=== PATIENT | male | born 1970 | race Caucasian/White ===

== ENCOUNTER 2017-02-04 07:11 | Day surgery (SDC) | payer BC ==
[~2017-02-04 07:11] MED LIST: Lactated Ringers 1,000 ML IV SCH; ceFAZolin 1 GM in Premix Bag 1 BAG IV SCH
--- NOTE | 2017-02-04 07:25 | PCM.PREANE ---
Preanesthetic Assessment - Anesthesia/Transfusion/Family Hx Anesthesia History: Prior Anesthesia Without Reaction Family History of Anesthesia Reaction: No Transfusion History: No Prior Transfusion(s) - Review of Systems General: No Symptoms Pulmonary: No Symptoms Cardiovascular: No Symptoms Gastrointestinal: No symptoms Neurological: No Symptoms Other: Reports: None - Physical Assessment Height: 1.8 m Weight: 79.379 kg ASA Class: 2 Mental Status: Alert & Oriented x3 Airway Class: Mallampati = 1 Dentition: Reports: Partial ROM/Head Extension: Full Lungs: Clear to auscultation, Normal respiratory effort Cardiovascular: Regular Rate, Regular Rhythm - Allergies Allergies/Adverse Reactions: Allergies Allergy/AdvReac Type Severity Reaction Status Date / Time No Known Allergies Allergy Verified 02/02/17 16:34 - Blood Blood Available: No - Anesthesia Plan Pre-Op Medication Ordered: None - Acknowledgements Anesthesia Type Planned: General Anesthesia Pt an Appropriate Candidate for the Planned Anesthesia: Yes Alternatives and Risks of Anesthesia Discussed w Pt/Guardian: Yes Pt/Guardian Understands and Agrees with Anesthesia Plan: Yes PreAnesthesia Questionnaire HEENT History: Reports: Allergic rhinitis Other HEENT History: has upper removable partial denture Cardiovascular History: Reports: None Respiratory History: Reports: None Gastrointestinal History: Reports: None Genitourinary History: Reports: None, Other (see below) Other Genitourinary History: hx prostatitis 2009, no recurrant sx Musculoskeletal History: Reports: Fracture Other Musculoskeletal History: hx of fx ribs and left wrist....no hardware Neurological History: Reports: Concussion, Migraines Other Neuro History: remote hx of migraines Psychiatric History: Reports: None Endocrine/Metabolic History: Reports: None Hematologic History: Reports: None Immunologic History: Reports: None Oncologic (Cancer) History: Reports: None Dermatologic History: Reports: Psoriasis Other Dermatologic History: below knees, bilateral - Past Surgical History Head Surgeries/Procedures: Reports: None HEENT Surgical History: Reports: Naso-sinus surgery Cardiovascular Surgical History: Reports: None Respiratory Surgical History: Reports: None GI Surgical History: Reports: Hernia, inguinal Other GI Surgeries/Procedures: bilateral Male Surgical History: Reports: None Endocrine Surgical History: Reports: None Neurological Surgical History: Reports: None Musculoskeletal Surgical History: Reports: Other (see below) Other Musculoskeletal Surgeries/Procedures:: drainage of septic bursitis right knee Oncologic Surgical History: Reports: None - SUBSTANCE USE Smoking Status *Q: Current Every Day Smoker Tobacco Use Within Last Twelve Months: Cigarettes Recreational Drug Use History: Yes Recreational Drug Type: Reports: Marijuana/Hashish - HOME MEDS Home Medications: Home Meds Diclofenac Sodium [Voltaren] 1 tab PO BID 02/02/17 [History] - CURRENT (IN HOUSE) MEDS Current Meds: Current Medications Acetaminophen/Hydrocodone Bitart ([place] 325-5 Mg) 1 - 2 tab PO Q4H PRN PRN Reason: Pain Lactated Ringer's (Ringers, Lactated) 1,000 mls @ 100 mls/hr IV ASDIRECTED [facility] Last Admin: 02/04/17 07:22 Dose: 100 mls/hr Cefazolin Sodium/Dextrose 1 gm (/ Premix) 50 mls @ 100 mls/hr IV ONCALL [facility] Preanesthetic Assessment - ANESTHESIA/TRANSFUSION/FAMILY HX Family History of Anesthesia Reaction: No - PHYSICAL ASSESSMENT Height: 1.8 m Weight: 79.379 kg - ALLERGIES Allergies/Adverse Reactions: Allergies Allergy/AdvReac Type Severity Reaction Status Date / Time No Known Allergies Allergy Verified 02/02/17 16:34
[2017-02-04] MEDS ORDERED: Ondansetron 4 MG/2 ML SDV ONE (07:45)
[2017-02-04] MEDS ORDERED: Lidocaine 2% 5 ML SDV ONE (07:45)
[2017-02-04] MEDS ORDERED: fentaNYL 250 MCG/5 ML SDV ONE (07:46)
[2017-02-04] MEDS ORDERED: Propofol 200 MG/20 ML SDV ONE (07:46)
[2017-02-04] MEDS ORDERED: Midazolam 1 MG/ML 2 ML SDV ONE (07:46)
[2017-02-04] MEDS ORDERED: Acetaminophen/HYDROcodone 325-5 MG Tab PO PRN (08:00)
[2017-02-04] MEDS ORDERED: fentaNYL 100 MCG/2 ML SDV IVPUSH PRN (08:30)
[2017-02-04] MEDS ORDERED: HYDROmorphone 2 MG/ML Syringe ONE (10:06)
[2017-02-04] MEDS ORDERED: Ketorolac 30 MG/ML SDV ONE (10:09)
--- NOTE | 2017-02-04 10:40 | PCM.OPNOTE ---
- General Post-Op/Procedure Note Date of Surgery/Procedure: 02/04/17 Operative Procedure(s): right knee arthroscopy, partial medial meniscectomy, chrondroplasty of troch groove Post-Op Diagnosis: DJD of right knee, right medial meniscus tear Anesthesia Technique: General LMA Primary Surgeon: Deb Kang Carbide Grinder: Tomasa Hurtado EBChristiano in mLs: 5 Condition: Good Free Text/Narrative:: TTE= 17 minutes
--- NOTE | 2017-02-04 11:28 | PCM.POSTAN ---
POST ANESTHESIA ASSESSMENT - MENTAL STATUS Mental Status: alert, oriented - RESPIRATORY Respiratory Status: respiratory rate WNL, airway patent, O2 saturation stable - CARDIOVASCULAR CV Status: pulse rate WNL, blood pressure stable - GASTROINTESTINAL GI Status: no symptoms - PAIN Pain Score: 3 - POST OP HYDRATION Hydration Status: adequate & stable - OBSERVATIONS Free Text/Narrative:: no anesthesia problems
--- NOTE | 2017-02-04 12:02 | PCM48HPAN ---
Post Anesthesia Note - EVALUATION WITHIN 48HRS OF ANESTHETIC Vital Signs in Normal Range: Yes Patient Participated in Evaluation: Yes Respiratory Function Stable: Yes Airway Patent: Yes Cardiovascular Function Stable: Yes Hydration Status Stable: Yes Pain Control Satisfactory: Yes Nausea and Vomiting Control Satisfactory: Yes Mental Status Recovered: Yes
[2017-02-04 12:11] VITALS: BP 140/88
[2017-02-04] MEDS ORDERED: Lidocaine 1% 50 ML MDV ONE ×2 (12:13→12:15)
--- NOTE | 2017-02-04 16:57 | OR ---
SURGEON: Deb Kang MD DATE OF PROCEDURE: 02/04/2017 PREOPERATIVE DIAGNOSIS: Right knee medial meniscus tear. POSTOPERATIVE DIAGNOSES: 1. Right knee medial meniscus tear. 2. Right knee degenerative joint disease. PROCEDURE: Right knee arthroscopy with partial medial meniscectomy and chondroplasty of the trochlear groove. TEACHER EDUCATION DIRECTOR: Tram Lopez MD, PGY-2. ANESTHESIA: General. ESTIMATED BLOOD LOSS: 5 mL. TOURNIQUET TIME: 17 minutes. COMPLICATIONS: None. DVT PROPHYLAXIS: None indicated. IMPLANTS USED: None. BRIEF HISTORY: Carlos is a 46-year-old male, who has had complaint of progressive right knee pain. He had failed conservative treatment. An MRI did show a tear of the medial meniscus. Due to his lack of response to conservative treatment, I did recommend surgical intervention. Risks and goals of procedure were discussed with the patient and were documented preoperatively. He agreed to proceed. DESCRIPTION OF PROCEDURE: The patient was properly identified and brought to the operating room. He was transferred from the OR cart and placed on the operating table in supine position. General anesthesia was administered. After adequate anesthesia was obtained, a well-padded tourniquet was applied to the right lower extremity. The right lower extremity was then prepped in standard fashion using ChloraPrep solution. It was then sterilely draped. A time-out was performed to ensure correct site and procedure. Preoperative antibiotics were given. The surgical site had been marked preoperatively. An Esmarch was used to exsanguinate the right lower extremity and the tourniquet was inflated to 250 mmHg. A lateral portal arthrotomy was established. Blunt trocar and cannula were introduced into the suprapatellar pouch. Camera, inflow, and outflow were assembled. No significant synovitis was noted. The patellofemoral joint was visualized. The degenerative changes were noted. The patella appeared to track centrally. I then extended down the lateral and medial gutter. No loose bodies were identified. I then entered the medial compartment. A medial portal arthrotomy was established. Blunt probe was inserted. He did have a large tear of the posterior horn of the medial meniscus which appeared to flipped. The probe was used to tease the tear from its flipped position and it was brought into the joint. It was found to be quite unstable. Using a combination of biters and shaver, the meniscus was resected back to a stable remnant. The meniscus was again probed and found to be stable. The chondral surfaces were also inspected. He had diffuse grade 2 chondromalacia along the medial tibial plateau. The medial femoral condyle showed grade 1 chondromalacia only. I then entered the notch. Both the ACL and PCL were visualized and probed and found to be stable. I then entered the lateral compartment. Again grade 2 chondromalacia was noted diffusely along the lateral tibial plateau as well as over the lateral femoral condyle. The meniscus was probed and found to be stable. Minor degenerative fraying was noted along the central portion of the meniscus only. I then returned to the patellofemoral joint. The trochlear groove was inspected. 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 The shaver was used to perform a chondroplasty. It was again probed and found that the remainder of the cartilage was stable. The undersurface of the patella showed diffuse grade 2 changes. Instruments were then removed from the knee. The portal sites were closed with 3-0 nylon. Lidocaine 1% was injected along the portal tracts. Xeroform gauze was placed over the wound and a bulky dressing was applied. Tourniquet was then deflated. He was awakened from his anesthetic and transferred back to the operating room cart. He was brought to recovery room in stable condition. All needle and sponge counts were correct. SUSAN / ИРИНА /[id number]
== END 2017-02-04 12:37 | disposition home or self-care (01) ==
LOC: MW.SDS 07:11
PROVIDERS: ATTEND Orthopaedic Surgery
PROC: 0SBC4ZZ Excision of Right Knee Joint, Percutaneous Endoscopic Approach (ICD-10-PCS; principal; 2017-02-04)
DX: S83.241A Other tear of medial meniscus, current injury, right knee, initial encounter (principal); M94.261 Chondromalacia, right knee; M17.11 Unilateral primary osteoarthritis, right knee; F17.210 Nicotine dependence, cigarettes, uncomplicated; Z79.1 Long term (current) use of non-steroidal anti-inflammatories (NSAID); Z98.890 Other specified postprocedural states
CPT/HCPCS: 29881; A9270; J0690; J1170; J1885; J2250; J2405; J3010; J7120; 01400; 88304; J2704

== ENCOUNTER → 2017-03-25 | Outpatient (CLI) | payer BC ==
[2017-03-25 12:04] LABS: CHLORIDE,CL 104 mmol/L (98-110); SODIUM,NA 137 mmol/L (136-146)
== END ==
LOC: MW.CHFP 10:55
PROVIDERS: ATTEND Physician Assistant
DX: I10 Essential (primary) hypertension (principal)
CPT/HCPCS: 36415; 80053; 82553; 84484; 93005

== ENCOUNTER → 2017-03-28 | Outpatient (CLI) | payer BC ==
[2017-03-28 09:18] LABS: CHLORIDE,CL 110 mmol/L (98-110); SODIUM,NA 142 mmol/L (136-146)
== END | disposition home or self-care (01) ==
LOC: MW.CHFP 08:04
PROVIDERS: ATTEND Physician Assistant
DX: I10 Essential (primary) hypertension (principal)
CPT/HCPCS: 36415; 80048; 80061

== ENCOUNTER → 2017-04-06 | Outpatient (CLI) | payer BC ==
--- NOTE | 2017-04-08 16:52 | ECHO ---
EXAM DATE: 04/06/17 PATIENT'S AGE: 46 The echocardiogram report can be seen in this patient's EMR (Electronic Medical Record) in the Reports section. IRENE
== END ==
LOC: MW.US 13:50
PROVIDERS: ATTEND Physician Assistant
DX: I10 Essential (primary) hypertension (principal); I51.7 Cardiomegaly
CPT/HCPCS: 93306

== ENCOUNTER 2017-04-26 08:13 | Emergency (ER) | payer BC ==
--- NOTE | 2017-04-26 08:25 | EDM.PDOC ---
ED HPI GENERAL MEDICAL PROBLEM - General Chief Complaint: Gastrointestinal Problem Stated Complaint: NEED TO SEE A DOCTOR Time Seen by Provider: 04/26/17 08:22 Source of Information: Reports: Patient History Limitations: Reports: No Limitations - History of Present Illness INITIAL COMMENTS - FREE TEXT/NARRATIVE: History of present illness: [] Patient is a chronic alcoholic who decided to stop drinking 3 days ago and is now complaining of severe weakness, vomiting, diarrhea, shaking and abdominal pain. He denies having blood in his emesis or stools. Patient denies any history of seizures. Review of systems: As per history of present illness and below otherwise all systems reviewed and negative. Past medical history: As per history of present illness and as reviewed below otherwise noncontributory. Surgical history: As per history of present illness and as reviewed below otherwise noncontributory. Social history: No reported history of drug or alcohol abuse. Family history: As per history of present illness and as reviewed below otherwise noncontributory. Physical exam: General: Well developed, well nourished mild tremors HEENT: Atraumatic, normocephalic, pupils reactive, negative for conjunctival pallor or scleral icterus, mucous membranes moist, throat clear, neck supple, nontender, trachea midline. Lungs: Clear to auscultation, breath sounds equal bilaterally, chest nontender. Heart: S1S2, regular, negative for clicks, rubs, or JVD. Abdomen: Soft, nondistended, nontender. Negative for masses or hepatosplenomegaly. Negative for costovertebral tenderness. Pelvis: Stable nontender. Genitourinary: Deferred. Rectal: Deferred. Extremities: Atraumatic, negative for cords or calf pain. Neurovascular unremarkable. Neuro: Awake, alert, oriented. Cranial nerves II through XII unremarkable. Cerebellum unremarkable. Motor and sensory unremarkable throughout. Exam nonfocal. Diagnostics: [] Lab work checked Therapeutics: [] Patient given a banana bag and Ativan. Impression: [] Alcohol withdrawal Plan: [] Followup PMD Librium instructed return if symptoms worsen or change Definitive disposition and diagnosis as appropriate pending reevaluation and review of above. - Related Data Allergies Allergy/AdvReac Type Severity Reaction Status Date / Time No Known Allergies Allergy Verified 02/02/17 16:34 Home Meds: Home Meds Lisinopril [Prinivil] 10 mg PO DAILY 04/26/17 [History] atorvaSTATin [Lipitor] 20 mg PO BEDTIME 04/26/17 [History] chlordiazePOXIDE [Librium] 25 mg PO TID #15 cap 04/26/17 [Rx] Past Medical History HEENT History: Reports: Allergic Rhinitis Other HEENT History: has upper removable partial denture Cardiovascular History: Reports: None Respiratory History: Reports: None Gastrointestinal History: Reports: None Genitourinary History: Reports: None, Other (See Below) Other Genitourinary History: hx prostatitis 2008, no recurrant sx Musculoskeletal History: Reports: Fracture Other Musculoskeletal History: hx of fx ribs and left wrist....no hardware Neurological History: Reports: Concussion, Migraines Other Neuro History: remote hx of migraines Psychiatric History: Reports: None Endocrine/Metabolic History: Reports: None Hematologic History: Reports: None Immunologic History: Reports: None Oncologic (Cancer) History: Reports: None Dermatologic History: Reports: Psoriasis Other Dermatologic History: below knees, bilateral - Past Surgical History HEENT Surgical History: Reports: Naso-Sinus Surgery GI Surgical History: Reports: Hernia, Inguinal Musculoskeletal Surgical History: Reports: Other (See Below) Social & Family History - Tobacco Use Smoking Status *Q: Current Every Day Smoker Years of Tobacco use: 8 Packs/Tins Daily: 0.5 - Recreational Drug Use Recreational Drug Use: Yes Drug Use in Last 12 Months: Yes Recreational Drug Type: Reports: Marijuana/Hashish Recreational Drug Use Frequency: Rarely ED ROS GENERAL - Review of Systems Review Of Systems: See Below (See history of present illness) ED EXAM, GI/ABD - Physical Exam Exam: See Below (See history of present illness) Course - Vital Signs Last Recorded V/S: Last Vital Signs Temp 36.6 C 04/26/17 10:59 Pulse 94 04/26/17 10:59 Resp 19 04/26/17 10:59 BP 163/93 H 04/26/17 10:59 Pulse Ox 96 04/26/17 10:59 - Orders/Labs/Meds Orders: Active Orders 24 hr Category Date Time Status EKG Documentation Completion [RC] STAT Care 04/26/17 08:30 Active Saline Lock Insert [OM.PC] Stat Oth 04/26/17 08:30 Ordered Labs: Laboratory Tests 04/26/17 04/26/17 04/26/17 Range/Units 08:44 08:44 08:44 WBC 12.50 H (4.0-11.0) K/uL RBC 5.53 (4.50-5.90) M/uL Hgb 17.7 H (13.0-17.0) g/dL Hct 47.8 (38.0-50.0) % MCV 86.4 (80.0-98.0) fL MCH 32.0 (27.0-32.0) pg MCHC 37.0 (31.0-37.0) g/dL RDW Std Deviation 39.5 (28.0-62.0) fl RDW Coeff of Cathi 13 (11.0-15.0) % Plt Count 180 (150-400) K/uL MPV 10.40 (7.40-12.00) fL Neut % (Auto) 62.0 (48.0-80.0) % Lymph % (Auto) 25.4 (16.0-40.0) % [place] % (Auto) 11.8 (0.0-15.0) % Eos % (Auto) 0.4 (0.0-7.0) % Baso % (Auto) 0.4 (0.0-1.5) % Neut # (Auto) 7.7 H (1.4-5.7) K/uL Lymph # (Auto) 3.2 H (0.6-2.4) K/uL [place] # (Auto) 1.5 H (0.0-0.8) K/uL Eos # (Auto) 0.1 (0.0-0.7) K/uL Baso # (Auto) 0.1 (0.0-0.1) K/uL Nucleated RBC % 0.0 /100WBC Nucleated RBCs # 0 K/uL Sodium 135 L (136-146) mmol/L Potassium 3.6 (3.5-5.1) mmol/L Chloride 99 (98-110) mmol/L Carbon Dioxide 19 L (21-31) mmol/L BUN 12 (6.0-23.0) mg/dL Creatinine 0.9 (0.6-1.5) mg/dL Est Cr Clr Drug Dosing 106.91 mL/min Estimated GFR (MDRD) > 60.0 ml/min Glucose 114 H (60-110) mg/dL Calcium 8.7 L (8.8-10.8) mg/dL Total Bilirubin 1.8 H (0.1-1.5) mg/dL AST 32 (5-40) IU/L ALT 29 (8-54) IU/L Alkaline Phosphatase 120 (40-150) Ammonia 50 (14-68) UG/DL Total Protein 7.4 (6.0-8.0) g/dL Albumin 4.7 (3.5-5.0) g/dL Globulin 2.7 (2.0-3.5) g/dL Albumin/Globulin Ratio 1.7 (1.3-2.8) Lipase 91 H (7-80) U/L Urine Opiates Screen (NEGATIVE) Ur Oxycodone Screen (NEGATIVE) Urine Methadone Screen (NEGATIVE) Ur Barbiturates Screen (NEGATIVE) Ur Phencyclidine Scrn (NEGATIVE) Ur Amphetamine Screen (NEGATIVE) U Methamphetamines Scrn (NEGATIVE) U Benzodiazepines Scrn (NEGATIVE) U Cocaine Metab Screen (NEGATIVE) U Marijuana (THC) Screen (NEGATIVE) Ethyl Alcohol < 10.0 mg/dL 04/26/17 Range/Units 10:27 WBC (4.0-11.0) K/uL RBC (4.50-5.90) M/uL Hgb (13.0-17.0) g/dL Hct (38.0-50.0) % MCV (80.0-98.0) fL MCH (27.0-32.0) pg MCHC (31.0-37.0) g/dL RDW Std Deviation (28.0-62.0) fl RDW Coeff of Cathi (11.0-15.0) % Plt Count (150-400) K/uL MPV (7.40-12.00) fL Neut % (Auto) (48.0-80.0) % Lymph % (Auto) (16.0-40.0) % [place] % (Auto) (0.0-15.0) % Eos % (Auto) (0.0-7.0) % Baso % (Auto) (0.0-1.5) % Neut # (Auto) (1.4-5.7) K/uL Lymph # (Auto) (0.6-2.4) K/uL [place] # (Auto) (0.0-0.8) K/uL Eos # (Auto) (0.0-0.7) K/uL Baso # (Auto) (0.0-0.1) K/uL Nucleated RBC % /100WBC Nucleated RBCs # K/uL Sodium (136-146) mmol/L Potassium (3.5-5.1) mmol/L Chloride (98-110) mmol/L Carbon Dioxide (21-31) mmol/L BUN (6.0-23.0) mg/dL Creatinine (0.6-1.5) mg/dL Est Cr Clr Drug Dosing mL/min Estimated GFR (MDRD) ml/min Glucose (60-110) mg/dL Calcium (8.8-10.8) mg/dL Total Bilirubin (0.1-1.5) mg/dL AST (5-40) IU/L ALT (8-54) IU/L Alkaline Phosphatase (40-150) Ammonia (14-68) UG/DL Total Protein (6.0-8.0) g/dL Albumin (3.5-5.0) g/dL Globulin (2.0-3.5) g/dL Albumin/Globulin Ratio (1.3-2.8) Lipase (7-80) U/L Urine Opiates Screen NEGATIVE (NEGATIVE) Ur Oxycodone Screen NEGATIVE (NEGATIVE) Urine Methadone Screen NEGATIVE (NEGATIVE) Ur Barbiturates Screen NEGATIVE (NEGATIVE) Ur Phencyclidine Scrn NEGATIVE (NEGATIVE) Ur Amphetamine Screen NEGATIVE (NEGATIVE) U Methamphetamines Scrn NEGATIVE (NEGATIVE) U Benzodiazepines Scrn NEGATIVE (NEGATIVE) U Cocaine Metab Screen NEGATIVE (NEGATIVE) U Marijuana (THC) Screen POSITIVE (NEGATIVE) Ethyl Alcohol mg/dL Meds: Medications Discontinued Medications Generic Name Dose Route Start Last Admin Trade Name Freq PRN Reason Stop Dose Admin Multivitamins/Minerals 10 ml/ 1,015.2 mls @ 999 mls/hr 04/26/17 09:15 09:24 Thiamine HCl 100 mg/ Folic IV 04/26/17 10:15 999 mls/hr Acid 1 mg/ Magnesium Sulfate 2 ONETIME ONE Administration gm/ Sodium Chloride Lorazepam 1 mg 04/26/17 08:34 04/26/17 08:50 Ativan IVPUSH 04/26/17 08:35 1 mg ONETIME ONE Administration Departure - Departure Time of Disposition: 11:06 Disposition: Home, Self-Care 01 Condition: good Clinical Impression: Uncontrolled hypertension Alcohol withdrawal Qualifiers: Complication of substance-induced condition: uncomplicated Qualified Code(s): F10.230 - Alcohol dependence with withdrawal, uncomplicated - Discharge Information Prescriptions: chlordiazePOXIDE [Librium] 25 mg PO TID #15 cap Referrals: Denys Madden [Primary Care Provider] - Forms: ED Department Discharge Additional Instructions: The following information is given to patients seen in the emergency department who are being discharged to home. This information is to outline your options for follow-up care. We provide all patients seen in our emergency department with a follow-up referral. The need for follow-up, as well as the timing and circumstances, are variable depending upon the specifics of your emergency department visit. If you don't have a primary care physician on staff, we will provide you with a referral. We always advise you to contact your personal physician following an emergency department visit to inform them of the circumstance of the visit and for follow-up with them and/or the need for any referrals to a consulting specialist. The emergency department will also refer you to a specialist when appropriate. This referral assures that you have the opportunity for follow-up care with a specialist. All of these measure are taken in an effort to provide you with optimal care, which includes your follow-up. Under all circumstances we always encourage you to contact your private physician who remains a resource for coordinating your care. When calling for follow-up care, please make the office aware that this follow-up is from your recent emergency room visit. If for any reason you are refused follow-up, please contact the [facility] Emergency Department at and asked to speak to the emergency department charge nurse. Bon as directed, follow up a primary care physician for blood pressure control. [facility] [address] [place] [id number] - My Orders Last 24 Hours: My Active Orders 04/26/17 08:30 EKG Documentation Completion [RC] STAT Saline Lock Insert [OM.PC] Stat - Assessment/Plan Last 24 Hours: My Active Orders 04/26/17 08:30 EKG Documentation Completion [RC] STAT Saline Lock Insert [OM.PC] Stat
[2017-04-26] MEDS ORDERED: MVI, Adult with Vitamin K 10 ML, Thiamine 100 MG, Folic Acid 1 MG, Magnesium Sulfate 2 ... IV ONE ×10 (08:32→09:15)
[2017-04-26] MEDS ORDERED: LORazepam 2 MG/ML MDV IVPUSH ONE (08:34)
[2017-04-26 09:21] LABS: CHLORIDE,CL 99 mmol/L (98-110); SODIUM,NA 135 mmol/L (136-146)
[2017-04-26 14:30] VITALS: BP 161/100
== END 2017-04-26 11:30 | disposition home or self-care (01) ==
LOC: MW.ED 08:13
DX: F10.230 Alcohol dependence with withdrawal, uncomplicated (principal); I10 Essential (primary) hypertension; G43.909 Migraine, unspecified, not intractable, without status migrainosus; L40.9 Psoriasis, unspecified; F17.210 Nicotine dependence, cigarettes, uncomplicated; Z79.899 Other long term (current) drug therapy; Y90.0 Blood alcohol level of less than 20 mg/100 ml
CPT/HCPCS: 36415; 80053; 80305; 82140; 83690; 85025; 93005; 96365; 96375; 99285; G0480; J2060; J3411; J3475; J7040; 99284

== ENCOUNTER 2021-08-30 16:37 | Emergency (ER) | payer BC ==
--- NOTE | 2021-08-30 17:00 | PCM.EKG ---
#1 Interpretation EKG Interpretation Comments: EKG performed 08/30/2021 at 4:47 PM. Sinus rhythm heart rate 81 MA 171 QT 422 axis 53. QRS normalized T slightly elevated T waves peaked. Compared to 04/26/2017 no acute changes except T wave slightly larger. Impression no acute injury
[2021-08-30] MEDS ORDERED: Sodium Chloride 0.9% 1,000 ML IV ONE ×2 (17:10→18:18)
[2021-08-30] MEDS ORDERED: Sodium Chloride 0.9% 2.5 ML Syringe FLUSH PRN (17:10)
[2021-08-30] MEDS ORDERED: Sodium Chloride 0.9% 10 ML Syringe FLUSH PRN (17:10)
[2021-08-30] MEDS ORDERED: Ondansetron 4 MG/2 ML SDV IVPUSH ONE (17:10)
[2021-08-30] MEDS ORDERED: Naloxone 0.4 MG/ML SDV IVPUSH ONE ×2 (17:14→21:46)
--- NOTE | 2021-08-30 17:19 | EDM.PDOC ---
ED HPI GENERAL MEDICAL PROBLEM - General Chief Complaint: General Stated Complaint: WEAKNESS, DIZZY Time Seen by Provider: 08/30/21 16:54 Source of Information: Reports: Patient, Family () History Limitations: Reports: No Limitations - History of Present Illness INITIAL COMMENTS - FREE TEXT/NARRATIVE: HISTORY AND PHYSICAL: History of present illness: The patient is a 51-year-old male with a history of neck pain and substance abuse who presents to the emergency room for complaints of losing balance, increased motor twitching of his upper extremities, decreased eating and drinking, for over a week. The patient states that on Tuesday, Tuesday, Tuesday he had a bad migraine. Patient also states that on the patient was at [employer] and blacked out. The patient did not seek medical treatment at that time. The patient states that he is taking hydromorphone 1 mg every 3 hours for a chronic neck pain issue. The patient states that he took 2 doses this morning. The states that the patient is not supposed to be taking this medication as it is highly addictive. The patient states that him and his doctor, Dr. Stacy, decided that he should take the hydromorphone because he is unable to work without it. The patient states that he has not sought treatment for this increase twitching, loss of balance and blacking out. Review of systems: As per history of present illness and below otherwise all systems reviewed and negative. Past medical history: As per history of present illness and as reviewed below otherwise noncontributory. Surgical history: As per history of present illness and as reviewed below otherwise noncontributory. Social history: See social history for further information Family history: As per history of present illness and as reviewed below otherwise noncontributory. Physical exam: General: Well developed and well nourished. Alert and orientated x 3. Nontoxic in appearance and in no acute distress. Nursing notes were reviewed. HEENT: Atraumatic, normocephalic, pupils equal and reactive bilaterally, negative for conjunctival pallor or scleral icterus, mucous membranes Dry, TMs normal bilaterally, throat clear, neck supple, nontender, trachea midline. No drooling or trismus noted. No meningeal signs. No hot potato voice noted. Lungs: Clear to auscultation bilaterally. No wheezes, rales, or rhonchi. Chest nontender. Normal work of breathing, no accessory muscles used. Heart: S1S2, regular rate and rhythm without overt murmur, gallops, or rubs. No JVD. No peripheral edema Abdomen: Soft, nondistended, nontender. Normoactive bowel sounds. Negative for masses or costovertebral tenderness. Skin: Intact, warm, dry. No lesions or rashes noted. Hematologic: No petechiae or purpra. Mucosa appropriate color and normal nail bed color and decrease capillary refill. Extremities: Atraumatic, moves all extremities per self without difficulty. Noted upper extremity twitching. Neurovascular unremarkable. Neuro: Awake, alert, oriented. Cranial nerves II through XII unremarkable. Cerebellum unremarkable. Motor and sensory unremarkable throughout. Exam nonfocal. Psychiatric: Mood and affect are appropriate. Normal thought process. Answering questions appropriately. Notes: *This patient was seen and evaluated during the 2019 SARS-CoV-2 novel coronavirus pandemic period. Community viral transmission is ongoing at time of this encounter and the emergency department is operating under pandemic response procedures. Dr. Ch consulting on case. The patient is a 51-year-old male who presents to the emergency room for complaints of losing his balance, migraines on Tuesday, Tuesday, Tuesday, increased upper extremity twitching and decreased appetite for over a week. As a was telling me the patient's medications and we were working on getting an IV and some IV fluids going on the patient as his oral mucosa and tongue were very dry and his blood pressure was in the 80s systolic. The patient told me that he takes hydromorphone 1 mg every 3 hours. He states that he had 2 doses today. The was concerned surprised as he is not so to be taking this. I asked the patient where he was getting his medication and he states from Dr. Stacy. Patient stated that he is just unable to work without the medication. 17:50 The patient's blood pressure remains low 80s systolic. Patient is alert and answering questions appropriately. Instructions that if the patient's blood pressure drops below 70 that we need to give the Narcan. The nurses have it at the bedside. 18:06 the patient's blood pressure dropped to 67 systolic and the Narcan was pushed. The patient became more alert. The blood pressure is now 93 systolic. The patient is starting to feel woozy. 18:26 the patient's potassium is 5.5 and with his EKG changes I have ordered bicarb 1 amp and calcium gluconate 1000 mg after consulting with Dr. Ch. 19:04 Dr. Ricketts consulting on case. The EKG with improvement after bicarb and calcium gluconate. 20:03 looking back at the patient's records in January of this year his creatinine was 1 and now it is 5.5. Upon asking the patient that he had any difficulty since January the patient stated no and is unaware of any elevation in his creatinine. The patient's CBC is significant for hemoglobin of 11.3. The patient's last hemoglobin I have on file is 06/30/2020 which was 16.6. The CMP is significant for a sodium of 135 and potassium of 5.5. The patient's BUN is 93, creatinine 5.4 calcium 8.4 magnesium 3.0. The patient is troponin is less than 0.050. The patient's free T4 is 0.58, free T3 is 2.37 and TSH is 3.67. The patient's urine is negative for any infection. The patient's drug screen is positive for opioids, amphetamine, and benzodiazepine, the patient reports that he takes lisinopril for blood pressure, Adderall for ADHD, metoprolol for some kind of heart rhythm, gabapentin for pain, and hydromorphone for pain. 20:[address] Bartlett regarding the patient and he feels that the patient needs a nephrology consult and to high acuity for our facility. I will informed the patient of the need to be transferred. 20:[address] IMPRESSION: No CT evidence of an acute intracranial abnormality. 21:48 , emergency department physician, has accepted the patient for ICU admission as the patient's blood pressure has continuously dropped to 82/42, 81/44 and 85/40. Dr. Cooney advised to give patient another 4 of Narcan as this appeared to help his blood pressure previously. I have ordered the Narcan 4 mg IV push. 22:05 the patient's pressure has stabilized at 114/66 after the second 4 mg of Narcan. We have arranged for transfer. The patient will be transported around 12:30 AM. As our ground crew is out of town. 22:14 The patient's repeat CMP the sodium is corrected at 141. The potassium is low at 5.2. The chloride is 109. Creatinine is 4.0 calcium 7.1. 22:15 I have informed the patient's and the patient of the pending transfer. They are both agreeable with this. The patient is COVID-19 negative. 22:[address] Ricketts. Diagnostics: Gilliam, Acetaminophen, CBC, CMP, virus swab, blood cultures x2, d rug screen, lactic acid, magnesium, T3, T4, troponin, TSH, urinalysis, repeat CM, head CT, CXR Therapeutics: IV fluids x 4, calcium gluconate, sodium bicarb, Narcan x2 Impression: Hypotension, renal failure, opioid overdose Definitive disposition and diagnosis as appropriate pending reevaluation and review of above. - Related Data Allergies Allergy/AdvReac Type Severity Reaction Status Date / Time No Known Allergies Allergy Unverified 09/01/21 19:02 Home Meds: Home Meds Lisinopril [Prinivil] 10 mg PO DAILY 04/26/17 [History] atorvaSTATin [Lipitor] 20 mg PO BEDTIME 04/26/17 [History] chlordiazePOXIDE [Librium] 25 mg PO TID #15 cap 04/26/17 [Rx] Past Medical History HEENT History: Reports: Allergic Rhinitis Other HEENT History: has upper removable partial denture Cardiovascular History: Reports: None Respiratory History: Reports: None Gastrointestinal History: Reports: None Genitourinary History: Reports: Other (See Below) Other Genitourinary History: hx prostatitis 2008, no recurrant sx Musculoskeletal History: Reports: Fracture Other Musculoskeletal History: hx of fx ribs and left wrist....no hardware Neurological History: Reports: Concussion, Migraines Other Neuro History: remote hx of migraines Psychiatric History: Reports: None Other Psychiatric History: ETOH Endocrine/Metabolic History: Reports: None Hematologic History: Reports: None Immunologic History: Reports: None Oncologic (Cancer) History: Reports: None Dermatologic History: Reports: Psoriasis Other Dermatologic History: below knees, bilateral - Past Surgical History Head Surgeries/Procedures: Reports: None HEENT Surgical History: Reports: Naso-Sinus Surgery GI Surgical History: Reports: Hernia, Inguinal Musculoskeletal Surgical History: Reports: Other (See Below) Social & Family History - Caffeine Use Caffeine Use: Reports: None ED ROS GENERAL - Review of Systems Review Of Systems: Comprehensive ROS is negative, except as noted in HPI. ED EXAM, GENERAL - Physical Exam Exam: See Below (See dictation) Course - Vital Signs Last Recorded V/S: Last Vital Signs Temp 97.7 F 08/30/21 17:18 Pulse 84 08/31/21 01:56 Resp 18 08/31/21 01:56 BP 103/57 L 08/31/21 01:56 Pulse Ox 98 08/31/21 01:56 - Orders/Labs/Meds Labs: Laboratory Tests 08/30/21 08/30/21 08/30/21 Range/Units 16:42 17:13 17:13 WBC (4.0-11.0) K/uL RBC (4.50-5.90) M/uL Hgb (13.0-17.0) g/dL Hct (38.0-50.0) % MCV (80.0-98.0) fL MCH (27.0-32.0) pg MCHC (31.0-37.0) g/dL RDW Std Deviation (28.0-62.0) fl RDW Coeff of Cathi (11.0-15.0) % Plt Count (150-400) K/uL MPV (7.40-12.00) fL Neut % (Auto) (48.0-80.0) % Lymph % (Auto) (16.0-40.0) % Gooding % (Auto) (0.0-15.0) % Eos % (Auto) (0.0-7.0) % Baso % (Auto) (0.0-1.5) % Neut # (Auto) (1.4-5.7) K/uL Lymph # (Auto) (0.6-2.4) K/uL Gooding # (Auto) (0.0-0.8) K/uL Eos # (Auto) (0.0-0.7) K/uL Baso # (Auto) (0.0-0.1) K/uL Nucleated RBC % /100WBC Nucleated RBCs # K/uL Sodium 135 L (136-148) mmol/L Potassium 5.5 H (3.5-5.1) mmol/L Chloride 100 (98-107) mmol/L Carbon Dioxide 21.6 (21.0-32.0) mmol/L BUN 93 H (7.0-18.0) mg/dL Creatinine 5.4 H (0.8-1.3) mg/dL Est Cr Clr Drug Dosing TNP Estimated GFR (MDRD) 11.2 ml/min Glucose 102 (74-106) mg/dL POC Glucose 104 H (70-99) mg/dL Lactic Acid 0.5 (0.4-2.0) mmol/L Calcium 8.4 L (8.5-10.1) mg/dL Magnesium 3.0 H (1.8-2.4) mg/dL Total Bilirubin 0.3 (0.2-1.0) mg/dL AST 23 (15-37) IU/L ALT 21 (14-63) IU/L Alkaline Phosphatase 105 (46-116) U/L Troponin I (0.000-0.056) ng/mL Total Protein 7.2 (6.4-8.2) g/dL Albumin 4.0 (3.4-5.0) g/dL Globulin 3.2 (2.6-4.0) g/dL Albumin/Globulin Ratio 1.3 (0.9-1.6) Free T4 (0.76-1.46) ng/dL Free T3 (2.18-3.98) pg/mL TSH, Ultra Sensitive (0.36-3.74) uIU/mL Urine Color Urine Appearance Urine pH (5.0-8.0) Ur Specific Letcher (1.001-1.035) Urine Protein (NEGATIVE) mg/dL Urine Glucose (UA) (NEGATIVE) mg/dL Urine Ketones (NEGATIVE) mg/dL Urine Occult Blood (NEGATIVE) Urine Nitrite (NEGATIVE) Urine Bilirubin (NEGATIVE) Urine Urobilinogen (<2.0) EU/dL Ur Leukocyte Esterase (NEGATIVE) Urine Opiates Screen (NEGATIVE) Ur Oxycodone Screen (NEGATIVE) Urine Methadone Screen (NEGATIVE) Acetaminophen ug/mL Ur Barbiturates Screen (NEGATIVE) Ur Phencyclidine Scrn (NEGATIVE) Ur Amphetamine Screen (NEGATIVE) U Methamphetamines Scrn (NEGATIVE) U Benzodiazepines Scrn (NEGATIVE) U Cocaine Metab Screen (NEGATIVE) U Marijuana (THC) Screen (NEGATIVE) SARS-CoV-2 RNA (MERA) (NEGATIVE) 08/30/21 08/30/21 08/30/21 Range/Units 17:13 17:45 18:45 WBC 10.71 (4.0-11.0) K/uL RBC 3.67 L (4.50-5.90) M/uL Hgb 11.3 L (13.0-17.0) g/dL Hct 34.2 L (38.0-50.0) % MCV 93.2 (80.0-98.0) fL MCH 30.8 (27.0-32.0) pg MCHC 33.0 (31.0-37.0) g/dL RDW Std Deviation 46.8 (28.0-62.0) fl RDW Coeff of Cathi 14 (11.0-15.0) % Plt Count 160 (150-400) K/uL MPV 11.40 (7.40-12.00) fL Neut % (Auto) 61.7 (48.0-80.0) % Lymph % (Auto) 24.1 (16.0-40.0) % Gooding % (Auto) 9.4 (0.0-15.0) % Eos % (Auto) 4.4 (0.0-7.0) % Baso % (Auto) 0.4 (0.0-1.5) % Neut # (Auto) 6.6 H (1.4-5.7) K/uL Lymph # (Auto) 2.6 H (0.6-2.4) K/uL Gooding # (Auto) 1.0 H (0.0-0.8) K/uL Eos # (Auto) 0.5 (0.0-0.7) K/uL Baso # (Auto) 0.0 (0.0-0.1) K/uL Nucleated RBC % 0.0 /100WBC Nucleated RBCs # 0 K/uL Sodium (136-148) mmol/L Potassium (3.5-5.1) mmol/L Chloride (98-107) mmol/L Carbon Dioxide (21.0-32.0) mmol/L BUN (7.0-18.0) mg/dL Creatinine (0.8-1.3) mg/dL Est Cr Clr Drug Dosing Estimated GFR (MDRD) ml/min Glucose (74-106) mg/dL POC Glucose (70-99) mg/dL Lactic Acid (0.4-2.0) mmol/L Calcium (8.5-10.1) mg/dL Magnesium (1.8-2.4) mg/dL Total Bilirubin (0.2-1.0) mg/dL AST (15-37) IU/L ALT (14-63) IU/L Alkaline Phosphatase (46-116) U/L Troponin I < 0.050 (0.000-0.056) ng/mL Total Protein (6.4-8.2) g/dL Albumin (3.4-5.0) g/dL Globulin (2.6-4.0) g/dL Albumin/Globulin Ratio (0.9-1.6) Free T4 0.58 L (0.76-1.46) ng/dL Free T3 2.37 (2.18-3.98) pg/mL TSH, Ultra Sensitive 3.67 (0.36-3.74) uIU/mL Urine Color YELLOW Urine Appearance CLEAR Urine pH 5.5 (5.0-8.0) Ur Specific Letcher 1.020 (1.001-1.035) Urine Protein NEGATIVE (NEGATIVE) mg/dL Urine Glucose (UA) NEGATIVE (NEGATIVE) mg/dL Urine Ketones NEGATIVE (NEGATIVE) mg/dL Urine Occult Blood NEGATIVE (NEGATIVE) Urine Nitrite NEGATIVE (NEGATIVE) Urine Bilirubin NEGATIVE (NEGATIVE) Urine Urobilinogen 0.2 (<2.0) EU/dL Ur Leukocyte Esterase NEGATIVE (NEGATIVE) Urine Opiates Screen (NEGATIVE) Ur Oxycodone Screen (NEGATIVE) Urine Methadone Screen (NEGATIVE) Acetaminophen <2.0 ug/mL Ur Barbiturates Screen (NEGATIVE) Ur Phencyclidine Scrn (NEGATIVE) Ur Amphetamine Screen (NEGATIVE) U Methamphetamines Scrn (NEGATIVE) U Benzodiazepines Scrn (NEGATIVE) U Cocaine Metab Screen (NEGATIVE) U Marijuana (THC) Screen (NEGATIVE) SARS-CoV-2 RNA (MERA) (NEGATIVE) 08/30/21 08/30/21 08/30/21 Range/Units 18:45 20:50 21:35 WBC (4.0-11.0) K/uL RBC (4.50-5.90) M/uL Hgb (13.0-17.0) g/dL Hct (38.0-50.0) % MCV (80.0-98.0) fL MCH (27.0-32.0) pg MCHC (31.0-37.0) g/dL RDW Std Deviation (28.0-62.0) fl RDW Coeff of Cathi (11.0-15.0) % Plt Count (150-400) K/uL MPV (7.40-12.00) fL Neut % (Auto) (48.0-80.0) % Lymph % (Auto) (16.0-40.0) % Gooding % (Auto) (0.0-15.0) % Eos % (Auto) (0.0-7.0) % Baso % (Auto) (0.0-1.5) % Neut # (Auto) (1.4-5.7) K/uL Lymph # (Auto) (0.6-2.4) K/uL Gooding # (Auto) (0.0-0.8) K/uL Eos # (Auto) (0.0-0.7) K/uL Baso # (Auto) (0.0-0.1) K/uL Nucleated RBC % /100WBC Nucleated RBCs # K/uL Sodium 141 (136-148) mmol/L Potassium 5.2 H (3.5-5.1) mmol/L Chloride 109 H (98-107) mmol/L Carbon Dioxide 22.1 (21.0-32.0) mmol/L BUN 78 H (7.0-18.0) mg/dL Creatinine 4.0 H (0.8-1.3) mg/dL Est Cr Clr Drug Dosing TNP Estimated GFR (MDRD) 15.8 ml/min Glucose 98 (74-106) mg/dL POC Glucose (70-99) mg/dL Lactic Acid (0.4-2.0) mmol/L Calcium 7.1 L (8.5-10.1) mg/dL Magnesium (1.8-2.4) mg/dL Total Bilirubin 0.2 (0.2-1.0) mg/dL AST 13 L (15-37) IU/L ALT 16 (14-63) IU/L Alkaline Phosphatase 85 (46-116) U/L Troponin I (0.000-0.056) ng/mL Total Protein 5.5 L (6.4-8.2) g/dL Albumin 3.0 L (3.4-5.0) g/dL Globulin 2.5 L (2.6-4.0) g/dL Albumin/Globulin Ratio 1.2 (0.9-1.6) Free T4 (0.76-1.46) ng/dL Free T3 (2.18-3.98) pg/mL TSH, Ultra Sensitive (0.36-3.74) uIU/mL Urine Color Urine Appearance Urine pH (5.0-8.0) Ur Specific Letcher (1.001-1.035) Urine Protein (NEGATIVE) mg/dL Urine Glucose (UA) (NEGATIVE) mg/dL Urine Ketones (NEGATIVE) mg/dL Urine Occult Blood (NEGATIVE) Urine Nitrite (NEGATIVE) Urine Bilirubin (NEGATIVE) Urine Urobilinogen (<2.0) EU/dL Ur Leukocyte Esterase (NEGATIVE) Urine Opiates Screen POSITIVE (NEGATIVE) Ur Oxycodone Screen NEGATIVE (NEGATIVE) Urine Methadone Screen NEGATIVE (NEGATIVE) Acetaminophen ug/mL Ur Barbiturates Screen NEGATIVE (NEGATIVE) Ur Phencyclidine Scrn NEGATIVE (NEGATIVE) Ur Amphetamine Screen POSITIVE (NEGATIVE) U Methamphetamines Scrn NEGATIVE (NEGATIVE) U Benzodiazepines Scrn POSITIVE (NEGATIVE) U Cocaine Metab Screen NEGATIVE (NEGATIVE) U Marijuana (THC) Screen NEGATIVE (NEGATIVE) SARS-CoV-2 RNA (MERA) NEGATIVE (NEGATIVE) Meds: Medications Discontinued Medications Generic Name Dose Route Start Last Admin Trade Name Freq PRN Reason Stop Dose Admin Calcium Gluconate 1 gm 08/30/21 18:23 08/30/21 18:57 Calcium Gluconate 10% 1 Gm/10 Ml Sdv IVPUSH 08/30/21 18:24 1 gm ONETIME ONE Administration Sodium Chloride 1,000 mls @ 999 mls/hr 08/30/21 17:10 08/30/21 18:17 Normal Saline IV 08/30/21 18:10 999 mls/hr .BOLUS ONE Administration Sodium Chloride 1,000 mls @ 999 mls/hr 08/30/21 17:37 08/30/21 18:20 Normal Saline IV 08/30/21 18:37 999 mls/hr .BOLUS ONE Administration Sodium Chloride 1,000 mls @ 999 mls/hr 08/30/21 18:18 08/30/21 19:30 Normal Saline IV 08/30/21 19:18 999 mls/hr .Bolus ONE Administration Lactated Ringer's 1,000 mls @ 999 mls/hr 08/30/21 21:34 08/30/21 21:40 Ringers, Lactated IV 08/30/21 22:34 999 mls/hr NOW STA Administration Sodium Chloride 1,000 mls @ 999 mls/hr 08/31/21 07:14 08/30/21 18:14 Normal Saline IV 08/31/21 08:14 999 mls/hr .Bolus ONE Administration Naloxone HCl 0.4 mg 08/30/21 17:14 08/30/21 18:10 Naloxone 0.4 Mg/Ml Sdv IVPUSH 08/30/21 17:15 0.4 mg ONETIME ONE Administration Naloxone HCl 0.4 mg 08/30/21 21:46 08/30/21 21:56 Naloxone 0.4 Mg/Ml Sdv IVPUSH 08/30/21 21:47 0.4 mg ONETIME ONE Administration Naloxone HCl Confirm 08/30/21 21:52 08/30/21 21:56 Naloxone 0.4 Mg/Ml Syringe Administered 08/30/21 21:53 Not Given Dose 0.4 mg .ROUTE .STK-MED ONE Ondansetron HCl 4 mg 08/30/21 17:10 08/30/21 17:48 Ondansetron 4 Mg/2 Ml Sdv IVPUSH 08/30/21 17:11 4 mg ONETIME ONE Administration Sodium Bicarbonate 50 meq 08/30/21 18:26 08/30/21 18:31 Sodium Bicarbonate 8.4% 50 Meq/50 Ml Syringe IVPUSH 08/30/21 18:27 50 meq ONETIME ONE Administration Sodium Chloride 10 ml 08/30/21 17:10 Sodium Chloride 0.9% 10 Ml Syringe FLUSH ASDIRECTED PRN Keep Vein Open Sodium Chloride 2.5 ml 08/30/21 17:10 Sodium Chloride 0.9% 2.5 Ml Syringe FLUSH ASDIRECTED PRN Keep Vein Open Departure - Departure Time of Disposition: 22:28 Disposition: DC/Tfer to [facility] 02 Condition: Fair Clinical Impression: Hypotension Qualifiers: Hypotension type: unspecified hypotension type Qualified Code(s): I95.9 - Hypotension, unspecified Renal failure Qualifiers: Renal failure chronicity: acute Acute renal failure type: unspecified Qualified Code(s): N17.9 - Acute kidney failure, unspecified Opioid overdose Qualifiers: Encounter type: initial encounter Injury intent: accidental or unintentional Qualified Code(s): T40.2X1A - Poisoning by other opioids, accidental (unintentional), initial encounter - Discharge Information *PRESCRIPTION DRUG MONITORING PROGRAM REVIEWED*: Not Applicable *COPY OF PRESCRIPTION DRUG MONITORING REPORT IN PATIENT EFRAIN: Not Applicable Referrals: Lori Ortiz NP [Primary Care Provider] - Forms: ED Department Discharge
[2021-08-30 17:47] LABS: BLOOD UREA NITROGEN,BUN 93 mg/dL (7.0-18.0); CARBON DIOXIDE,CO2 21.6 mmol/L (21.0-32.0); CHLORIDE,CL 100 mmol/L (98-107); GLUCOSE RANDOM 102 mg/dL (74-106); POTASSIUM,K 5.5 mmol/L (3.5-5.1); SODIUM,NA 135 mmol/L (136-148)
[2021-08-30] MEDS: Sodium Chloride 0.9% 1,000 ML IV ONE ×2 (18:17→18:20)
[2021-08-30 18:21] LABS: ACETAMINOPHEN <2.0 ug/mL
[2021-08-30] MEDS ORDERED: Calcium Gluconate 10% 1 GM/10 ML SDV IVPUSH ONE (18:23)
[2021-08-30] MEDS ORDERED: Sodium Bicarbonate 8.4% 50 MEQ/50 ML Syringe IVPUSH ONE (18:26)
--- NOTE | 2021-08-30 19:30 | CR ---
Indication: Syncope. Technique: AP portable view of the chest. Comparison: None Findings: The heart is normal in size. The lungs are clear. No infiltrate, pleural effusion, or pneumothorax is identified. Impression: No acute cardiopulmonary process Dictated by Cathy Fuller MD @ 08/30/2021 7:29:19 PM (Electronically Signed)
--- NOTE | 2021-08-30 19:34 | PCM.EKG ---
#2 Interpretation EKG Interpretation Comments: Heart rate = 92 bpm, normal sinus rhythm, normal QRS interval, no STEMI. EKG and rhythm strip interpreted by me at 1904
--- NOTE | 2021-08-30 20:30 | CT ---
INDICATION: Altered level of consciousness. TECHNIQUE: Noncontrast axial images. Sagittal and coronal reconstruction. COMPARISON: None. FINDINGS: There is no abnormal intracranial mass effect or midline shift. No acute intracranial hemorrhage. No areas of abnormal attenuation are seen within the brain. CSF spaces are age-appropriate. Postsurgical changes paranasal sinuses. Mastoids are clear. IMPRESSION: No CT evidence of an acute intracranial abnormality. Dictated by Korey Simental MD @ 08/30/2021 8:29:22 PM Please note that all CT scans at this facility use dose modulation, iterative reconstruction, and/or weight-based dosing when appropriate to reduce radiation dose to as low as reasonably achievable. Dictated by: Korey Simental MD @ 08/30/2021 20:29:28 (Electronically Signed)
[2021-08-30] MEDS ORDERED: Lactated Ringers 1,000 ML IV STA (21:34)
[2021-08-30] MEDS ORDERED: Naloxone 0.4 MG/ML Syringe ONE (21:52)
[2021-08-30 22:07] LABS: BLOOD UREA NITROGEN,BUN 78 mg/dL (7.0-18.0); CARBON DIOXIDE,CO2 22.1 mmol/L (21.0-32.0); CHLORIDE,CL 109 mmol/L (98-107); GLUCOSE RANDOM 98 mg/dL (74-106); POTASSIUM,K 5.2 mmol/L (3.5-5.1); SODIUM,NA 141 mmol/L (136-148)
[2021-08-31 01:57] VITALS: BP 103/57; PULSE 84
[2021-08-31] MEDS ORDERED: Sodium Chloride 0.9% 1,000 ML IV ONE (07:14)
== END 2021-08-31 01:56 ==
LOC: MW.ED 16:37
DX: T40.2X1A Poisoning by other opioids, accidental (unintentional), initial encounter (principal); I95.9 Hypotension, unspecified; N17.9 Acute kidney failure, unspecified; Z79.899 Other long term (current) drug therapy
CPT/HCPCS: 36415; 70450; 71045; 80053; 80143; 80305; 81003; 82947; 83605; 83735; 84439; 84443; 84481; 84484; 85025; 87040; 87635; 93005; 96374; 96375; 96376; 99285; J0610; J2310; J2405; J7030; J7120; U0002

== ENCOUNTER 2021-09-01 16:09 | Emergency (ER) | payer BC ==
--- NOTE | 2021-09-01 20:06 | EDM.PDOC ---
ED HPI GENERAL MEDICAL PROBLEM - General Chief Complaint: Behavioral/Psych Stated Complaint: ENEDINA REFERRAL Time Seen by Provider: 09/01/21 19:26 Source of Information: Reports: Patient History Limitations: Reports: No Limitations - History of Present Illness INITIAL COMMENTS - FREE TEXT/NARRATIVE: Patient is a 51-year-old male history of high blood pressure ADH presents today for complaints of just not feeling well. We asked patient to be more specific he said he just does not feel right his at the bedside and gives a history in the past states the patient was here few days ago after he took an increased amount of his narcotics and was found to be hyperkalemic and hypotensive and have MARSHALL patient was transferred to my not bear his states that he was seen by pharmacogeneticist in the morning said it was okay he was okay is at home brought him back because she wants to make sure everything is right with him again patient cannot be specifically denies any chest pain headache fever chills cough nausea vomiting or other complaints. Posterior Neck Pain Score (Numeric/FACES): 3 - Related Data Allergies Allergy/AdvReac Type Severity Reaction Status Date / Time No Known Allergies Allergy Unverified 09/01/21 19:02 Home Meds: Home Meds Lisinopril [Prinivil] 10 mg PO DAILY 04/26/17 [History] atorvaSTATin [Lipitor] 20 mg PO BEDTIME 04/26/17 [History] chlordiazePOXIDE [Librium] 25 mg PO TID #15 cap 04/26/17 [Rx] Past Medical History HEENT History: Reports: Allergic Rhinitis Other HEENT History: has upper removable partial denture Cardiovascular History: Reports: None Respiratory History: Reports: None Gastrointestinal History: Reports: None Genitourinary History: Reports: Other (See Below) Other Genitourinary History: hx prostatitis 2009, no recurrant sx Musculoskeletal History: Reports: Fracture Other Musculoskeletal History: hx of fx ribs and left wrist....no hardware Neurological History: Reports: Concussion, Migraines Other Neuro History: remote hx of migraines Psychiatric History: Reports: None Other Psychiatric History: ETOH Endocrine/Metabolic History: Reports: None Hematologic History: Reports: None Immunologic History: Reports: None Oncologic (Cancer) History: Reports: None Dermatologic History: Reports: Psoriasis Other Dermatologic History: below knees, bilateral - Infectious Disease History Infectious Disease History: Reports: None - Past Surgical History Head Surgeries/Procedures: Reports: None HEENT Surgical History: Reports: Naso-Sinus Surgery Cardiovascular Surgical History: Reports: None Respiratory Surgical History: Reports: None GI Surgical History: Reports: Hernia, Inguinal Other GI Surgeries/Procedures: bilateral Male Surgical History: Reports: None Endocrine Surgical History: Reports: None Neurological Surgical History: Reports: None Musculoskeletal Surgical History: Reports: Other (See Below) Other Musculoskeletal Surgeries/Procedures:: drainage of septic bursitis right knee Oncologic Surgical History: Reports: None Social & Family History - Family History Family Medical History: No Pertinent Family History - Tobacco Use Tobacco Use Status *Q: Current Every Day Tobacco User Years of Tobacco use: 5 Packs/Tins Daily: 0.5 - Caffeine Use Caffeine Use: Reports: Soda - Recreational Drug Use Recreational Drug Use: No ED ROS GENERAL - Review of Systems Review Of Systems: See Below Constitutional: Reports: No Symptoms HEENT: Reports: No Symptoms Respiratory: Reports: No Symptoms Cardiovascular: Reports: No Symptoms Endocrine: Reports: No Symptoms GI/Abdominal: Reports: No Symptoms : Reports: No Symptoms Musculoskeletal: Reports: No Symptoms Skin: Reports: No Symptoms Neurological: Reports: No Symptoms Psychiatric: Reports: No Symptoms Hematologic/Lymphatic: Reports: No Symptoms Immunologic: Reports: No Symptoms ED EXAM, GENERAL - Physical Exam Exam: See Below Exam Limited By: No Limitations General Appearance: Alert, WD/WN, No Apparent Distress Eye Exam: Bilateral Eye: EOMI, PERRL Ears: Normal External Exam Nose: Normal Inspection Throat/Mouth: Normal Inspection Head: Atraumatic, Normocephalic Neck: Normal Inspection Respiratory/Chest: No Respiratory Distress, Lungs Clear, Normal Breath Sounds Cardiovascular: Normal Peripheral Pulses GI/Abdominal: Normal Bowel Sounds, Soft, Non-Tender Extremities: Normal Inspection, Normal Range of Motion Neurological: Alert, Oriented, CN II-XII Intact, Normal Cognition, Normal Gait Course - Vital Signs Last Recorded V/S: Last Vital Signs Temp 97.4 F 09/01/21 19:02 Pulse 89 09/01/21 19:02 Resp 17 09/01/21 19:02 BP 159/90 H 09/01/21 19:02 Pulse Ox 99 09/01/21 19:02 - Orders/Labs/Meds Labs: Laboratory Tests 09/01/21 09/01/21 Range/Units 20:30 20:30 WBC 6.24 (4.0-11.0) K/uL RBC 3.92 L (4.50-5.90) M/uL Hgb 12.1 L (13.0-17.0) g/dL Hct 36.0 L (38.0-50.0) % MCV 91.8 (80.0-98.0) fL MCH 30.9 (27.0-32.0) pg MCHC 33.6 (31.0-37.0) g/dL RDW Std Deviation 44.2 (28.0-62.0) fl RDW Coeff of Cathi 13 (11.0-15.0) % Plt Count 170 (150-400) K/uL MPV 11.10 (7.40-12.00) fL Neut % (Auto) 68.1 (48.0-80.0) % Lymph % (Auto) 21.5 (16.0-40.0) % O'Brien % (Auto) 7.4 (0.0-15.0) % Eos % (Auto) 2.7 (0.0-7.0) % Baso % (Auto) 0.3 (0.0-1.5) % Neut # (Auto) 4.3 (1.4-5.7) K/uL Lymph # (Auto) 1.3 (0.6-2.4) K/uL O'Brien # (Auto) 0.5 (0.0-0.8) K/uL Eos # (Auto) 0.2 (0.0-0.7) K/uL Baso # (Auto) 0.0 (0.0-0.1) K/uL Nucleated RBC % 0.0 /100WBC Nucleated RBCs # 0 K/uL Sodium 141 (136-148) mmol/L Potassium 4.7 (3.5-5.1) mmol/L Chloride 106 (98-107) mmol/L Carbon Dioxide 25.2 (21.0-32.0) mmol/L BUN 29 H (7.0-18.0) mg/dL Creatinine 0.9 (0.8-1.3) mg/dL Est Cr Clr Drug Dosing 97.44 mL/min Estimated GFR (MDRD) > 60.0 ml/min Glucose 117 H (74-106) mg/dL Calcium 8.2 L (8.5-10.1) mg/dL Phosphorus 2.1 L (2.6-4.7) mg/dL Magnesium 1.5 L (1.8-2.4) mg/dL Total Bilirubin 0.3 (0.2-1.0) mg/dL AST 16 (15-37) IU/L ALT 16 (14-63) IU/L Alkaline Phosphatase 94 (46-116) U/L Creatine Kinase 140 (26-308) U/L Total Protein 6.5 (6.4-8.2) g/dL Albumin 3.4 (3.4-5.0) g/dL Globulin 3.1 (2.6-4.0) g/dL Albumin/Globulin Ratio 1.1 (0.9-1.6) Lipase 86 (73-393) U/L - Re-Assessments/Exams Free Text/Narrative Re-Assessment/Exam: 09/01/21 21:46 Patient labs reviewed and his creatinine is back to normal has some low calcium phosphorus and magnesium. Patient still says just does not feel right he cannot really pinpoint base of labs and vital signs and his physical examination we have no reason to keep admit patient we will refer him to neurology and his PMD for further work-up. Departure - Departure Time of Disposition: 21:47 Disposition: Home, Self-Care 01 Condition: Good Clinical Impression: General medical examination - Discharge Information *PRESCRIPTION DRUG MONITORING PROGRAM REVIEWED*: Not Applicable *COPY OF PRESCRIPTION DRUG MONITORING REPORT IN PATIENT EFRAIN: Not Applicable Instructions: Medical Screening Exam Referrals: Gisela Grant DO [Primary Care Provider] - Forms: ED Department Discharge Additional Instructions: The following information is given to patients seen in the emergency department who are being discharged to home. This information is to outline your options for follow-up care. We provide all patients seen in our emergency department with a follow-up referral. The need for follow-up, as well as the timing and circumstances, are variable depending upon the specifics of your emergency department visit. If you don't have a primary care physician on staff, we will provide you with a referral. We always advise you to contact your personal physician following an emergency department visit to inform them of the circumstance of the visit and for follow-up with them and/or the need for any referrals to a consulting laura kowalski. The emergency department will also refer you to a specialist when appropriate. This referral assures that you have the opportunity for follow-up care with a specialist. All of these measure are taken in an effort to provide you with optimal care, which includes your follow-up. Under all circumstances we always encourage you to contact your private physician who remains a resource for coordinating your care. When calling for follow-up care, please make the office aware that this follow-up is from your recent emergency room visit. If for any reason you are refused follow-up, please contact the Emergency Department at and asked to speak to the emergency department charge nurse. Please follow up with your primary care physician. If you do not have a primary care physician, see below: [facility] [address] [place] [id number] [facility] [address] [place] [id number] [facility] Professional Building [address] [place] [address], [address] [place] [address] You were seen today for what she described as not feeling herself. We did labs which are actually improved with the last time you been here your vital signs are stable not find any concerning cause on exam or lab to admit you but however if you continue to have symptoms we have attached numbers for primary care physician and also your feeling foggy you can also follow-up with your neur ologist if you can obtain appointment. If you have any other concerning signs or symptoms please return to the ED. Sepsis Event Note (ED) - Evaluation Sepsis Screening Result: No Definite Risk - Focused Exam Vital Signs: Vital Signs Temp Pulse Resp BP Pulse Ox 09/01/21 19:02 97.4 F 89 17 159/90 H 99 - Assessment/Plan Plan: Patient is a 51-year-old male who presents today for not feeling right. Patient denies every symptom that we asked him about but he states he does not feel like normal self. He had a CAT scan a few days ago did not show any concerning findings. We will obtain basic labs UA to look for any signs of infection and likely refer to primary care physician.
[2021-09-01 21:10] LABS: BLOOD UREA NITROGEN,BUN 29 mg/dL (7.0-18.0); CARBON DIOXIDE,CO2 25.2 mmol/L (21.0-32.0); CHLORIDE,CL 106 mmol/L (98-107); GLUCOSE RANDOM 117 mg/dL (74-106); LIPASE 86 U/L (73-393); POTASSIUM,K 4.7 mmol/L (3.5-5.1); SODIUM,NA 141 mmol/L (136-148)
[2021-09-02 01:14] VITALS: BP 139/82; PULSE 88
== END 2021-09-01 23:30 | disposition home or self-care (01) ==
LOC: MW.ED 16:09
DX: M54.2 Cervicalgia (principal); Z72.0 Tobacco use
CPT/HCPCS: 36415; 80053; 82550; 83690; 83735; 84100; 85025; 99284

== ENCOUNTER 2021-11-09 17:41 | Emergency (ER) | payer BC ==
[2021-11-09] MEDS ORDERED: LORazepam 2 MG/ML SDV IVPUSH ONE ×4 (18:43→21:47)
[2021-11-09] MEDS ORDERED: Thiamine 100 MG in Sodium Chloride 0.9% 100 ML IV ONE (18:44)
[2021-11-09] MEDS ORDERED: Thiamine 200 MG/2 ML MDV IVPUSH ONE (19:12)
[2021-11-09 19:45] LABS: ACETAMINOPHEN <2.0 ug/mL; BLOOD UREA NITROGEN,BUN 15 mg/dL (7.0-18.0); CARBON DIOXIDE,CO2 14.8 mmol/L (21.0-32.0); CHLORIDE,CL 108 mmol/L (98-107); GLUCOSE RANDOM 107 mg/dL (74-106); POTASSIUM,K 3.4 mmol/L (3.5-5.1); SODIUM,NA 140 mmol/L (136-148)
--- NOTE | 2021-11-09 20:07 | CR ---
INDICATION: Altered mental status. TECHNIQUE: Portable AP chest radiograph. COMPARISON: 08/30/2021. FINDINGS: Low lung volumes. No focal pulmonary opacity, pneumothorax, or pleural effusion. Cardiac size within normal limits. Multilevel cervical ACDF. IMPRESSION: Low volume study. No acute cardiopulmonary findings. Dictated by Johan Rodriguez MD @ 11/09/2021 8:05:30 PM Dictated by: Johan Rodriguez MD @ 11/09/2021 20:05:34 (Electronically Signed)
--- NOTE | 2021-11-09 20:07 | CT ---
INDICATION: Altered mental status. TECHNIQUE: Head CT without intravenous contrast. Coronal and sagittal reformats. COMPARISON: Head CT 08/30/2021. FINDINGS: No intracranial hemorrhage, extra-axial collection, or evidence of acute cortical infarction. Age-appropriate ventricles and sulci. No mass effect or midline shift. The cranium and orbits appear intact. The paranasal sinuses and mastoid air cells are clear. IMPRESSION: No acute intracranial findings. Dictated by Johan Rodriguez MD @ 11/09/2021 8:04:39 PM Please note that all CT scans at this facility use dose modulation, iterative reconstruction, and/or weight-based dosing when appropriate to reduce radiation dose to as low as reasonably achievable. Dictated by: Johan Rodriguez MD @ 11/09/2021 20:04:46 (Electronically Signed)
[2021-11-09] MEDS ORDERED: Potassium Chloride 20 MEQ Tab.ER PO ONE (20:45)
[2021-11-09] MEDS ORDERED: Magnesium Sulfate/Water 4 GM in Premix Bag 1 BAG IV ONE (20:45)
--- NOTE | 2021-11-09 20:52 | EDM.PDOC ---
<Rocco Ch - Last Filed: 11/10/21 05:30> ED HPI GENERAL MEDICAL PROBLEM - General Chief Complaint: General Stated Complaint: DETOX, HIGH BP Time Seen by Provider: 11/09/21 18:26 - Related Data Allergies Allergy/AdvReac Type Severity Reaction Status Date / Time No Known Allergies Allergy Unverified 11/09/21 17:51 Home Meds: Home Meds Lisinopril [Prinivil] 10 mg PO DAILY 04/26/17 [History] atorvaSTATin [Lipitor] 20 mg PO BEDTIME 04/26/17 [History] chlordiazePOXIDE [Librium] 25 mg PO TID #15 cap 04/26/17 [Rx] Gabapentin [Neurontin] 1 dose ASDIRECTED 11/09/21 [History] HYDROmorphone [Dilaudid] 1 dose 11/09/21 [History] #1 Interpretation EKG Interpretation Comments: EKG 11/09/2021 at 7:30 PM sinus tachycardia heart rate 105 SC 192 QT [address] and T impression normal except rate. Course - Re-Assessments/Exams Free Text/Narrative Re-Assessment/Exam: 11/09/21 21:15 . The patient does not [place] exam. He is slow to speak after his Ativan. He denies taking anything except the medicines that were in the trash and the says that was Dilaudid. The is making decisions for him now since he is disoriented. She understands risk and benefits of an LP and agrees. 11/09/21 22:43 I have participated in getting this patient adequately sedated so that we can do a spinal tap to rule out a REEL SYSTEM OPERATOR infection. I also assisted with a spinal tap while my advanced practice practitioner accomplished the procedure and will write the procedure note. I will picker packer the patient because her shift is ending. Free Text/Narrative Re-Assessment/Exam: 11/10/21 05:30 8 after sleeping here the patient is oriented and get not get dressed and wants to go home. Appears that perhaps a combination of polypharmacy is what caused him to have a change in mental status and is better now. Departure - Departure Time of Disposition: 05:31 Disposition: Home, Self-Care 01 Condition: Good Clinical Impression: Overdose by ingestion - Discharge Information Instructions: Accidental Drug Poisoning, Adult Referrals: Gisela Grant DO [Primary Care Provider] - Forms: ED Department Discharge Additional Instructions: [facility] Address: [address] [place] [address] Hours: walk in 9 AM M-F [facility] [address] [place] [address] [facility] [address] [place] [id number] The following information is given to patients seen in the emergency department who are being discharged to home. This information is to outline your options for follow-up care. We provide all patients seen in our emergency department with a follow-up referral. The need for follow-up, as well as the timing and circumstances, are variable depending upon the specifics of your emergency department visit. If you don't have a primary care physician on staff, we will provide you with a referral. We always advise you to contact your personal physician following an emergency department visit to inform them of the circumstance of the visit and for follow-up with them and/or the need for any referrals to a consulting specialist. The emergency department will also refer you to a specialist when appropriate. This referral assures that you have the opportunity for follow-up care with a specialist. All of these measure are taken in an effort to provide you with optimal care, which includes your follow-up. Under all circumstances we always encourage you to contact your private physician who remains a resource for coordinating your care. When calling for follow-up care, please make the office aware that this follow-up is from your recent emergency room visit. If for any reason you are refused follow-up, please contact the [facility] Emergency Department at and asked to speak to the emergency department charge nurse. <Lou Meredith - Last Filed: 11/13/21 10:13> ED HPI GENERAL MEDICAL PROBLEM - General Source of Information: Reports: Patient History Limitations: Reports: No Limitations - History of Present Illness INITIAL COMMENTS - FREE TEXT/NARRATIVE: HISTORY AND PHYSICAL: History of present illness: Patient is a 51-year-old male, with a history of past alcohol use/withdrawal, and opioid addiction, who presents emergency room today with his for concern of altered mental status. According to , patient is addicted to Dilaudid and receives this from his primary care provider. states that he has not been taking Dilaudid for the past 1.5 months but states that he went to the pharmacy and repeat filled the prescription. He states he has not seen a primary care provider in over a year so is unsure why he keeps getting the prescription but states that he is addicted to these medications. states that she got upset on Tuesday and throughout his pill bottles so thought that he was withdrawing from Dilaudid. states that he started making bizarre statements today and noticed that his heart rate was high and his blood pressure was elevated so brought him here to the emergency room. At bedside, patient is making bizarre statements that "there is a old man inside me ". When asking questions, he does not answer these appropriately and continues to make bizarre statements relating to the old man. Patient does not directly answer questions about substance use. He is hyperactive at bedside and requesting water. Review of systems: As per history of present illness and below otherwise all systems reviewed and negative. Past medical history: As per history of present illness and as reviewed below otherwise noncontributory. Surgical history: As per history of present illness and as reviewed below otherwise noncontributory. Social history: See social history for further information Family history: As per history of present illness and as reviewed below otherwise noncontrib utory. Physical exam: General: Patient is alert, and in no acute distress. Patient sitting on exam table, hyperactive, patient does not answer questions appropriately but will periodically respond. Patient is tachycardic 120s and hypertensive 180s over 100s, is otherwise vitally stable. CIWA 20 (unsure if patient is currently drinking as stated has been sober for 3 years). HEENT: Atraumatic, normocephalic, pupils equal and reactive bilaterally, negative for conjunctival pallor or scleral icterus, mucous membranes moist, throat clear, neck supple, nontender, trachea midline. No drooling or trismus noted. No meningeal signs. No hot potato voice noted. Lungs: Clear to auscultation, breath sounds equal bilaterally, chest nontender. Heart: S1S2, regular rate and rhythm without overt murmur Abdomen: Soft, nondistended, nontender. Negative for masses or hepatosplenomegaly. Negative for costovertebral tenderness. Pelvis: Stable nontender. Genitourinary: Deferred. Rectal: Deferred. Skin: Intact, warm, dry. No lesions or rashes noted. Extremities: Atraumatic, negative for cords or calf pain. Neurovascular unremarkable. Neuro: Awake, alert, oriented. Cranial nerves II through XII unremarkable. Cerebellum unremarkable. Motor and sensory unremarkable throughout. Exam nonfocal. Medical Decision Making: Patient is a 51-year-old male with a past medical history of alcohol use/withdrawal, and opioid dependency, who presents emergency room today with concern of altered mental status. Upon arrival to the ED, patient is alert, however, he is hyperactive on exam and does not answer questions appropriately. He does have a tremor that is not visible but is felt to the fingertip and does appear anxious. Patient is also fidgety and restless and appears agitated. He is having severe hallucinations about a "old stephanie "and states that he is hearing this old stephanie tell him things. He does have clouding of his sensorium. states that he has been sober for 3 years, unclear if patient has had any recent alcohol use. Will obtain full altered mental status evaluation, provide 2 mg of Ativan, and reassess patient. CBC does show a leukocytosis of 13.48, otherwise mild derangements of CBC are unremarkable. CMP does show mild hypokalemia of 3.4, CO2 decreased at 14.8, creatinine elevated in isolation at 1.4. Magnesium is decreased at 1.6. Will provide potassium magnesium supplementation today. Salicylate is 5.2, Acetaminophen less than 2, alcohol less than 3. Head CT shows no acute intracranial findings. Chest x-ray shows low volume study. No acute cardiopulmonary findings. Continual reevaluation shows that Ativan does improve his blood pressure and his heart rate but and HR now 80-90 and bp 140s/90s. However, patient does still appear if not worsening mental status. He has no longer answering questions appropriately and is making bizarre incoherent statements. Will perform lumbar puncture-consent obtained by and consent form completed. Patient is also unable to leave a urine sample so will obtain a straight catheterization for urine sample. See procedure note below Dr. Ch has assumed care of patient and will follow remaining diagnostics and disposition Diagnostics: CBC, CMP, magnesium, TSH, salicylate, acetaminophen, alcohol, urine drug screen, chest x-ray, head CT, LP (cell count and differential, Gram stain, bacterial and viral culture, glucose, protein, second cell count and differential Therapeutics: Ativan, Thiamine, Benadryl, Haldol Prescription: Impression: Altered mental status Plan: Definitive disposition and diagnosis as appropriate pending reevaluation and review of above. Past Medical History HEENT History: Reports: Allergic Rhinitis Other HEENT History: has upper removable partial denture Cardiovascular History: Reports: None Respiratory History: Reports: None Gastrointestinal History: Reports: None Genitourinary History: Reports: Other (See Below) Other Genitourinary History: hx prostatitis 2008, no recurrant sx Musculoskeletal History: Reports: Fracture Other Musculoskeletal History: hx of fx ribs and left wrist....no hardware Neurological History: Reports: Concussion, Migraines Other Neuro History: remote hx of migraines Psychiatric History: Reports: Addiction Other Psychiatric History: ETOH. dilaudid Endocrine/Metabolic History: Reports: None Hematologic History: Reports: None Immunologic History: Reports: None Oncologic (Cancer) History: Reports: None Dermatologic History: Reports: Psoriasis Other Dermatologic History: below knees, bilateral - Infectious Disease History Infectious Disease History: Reports: None - Past Surgical History Head Surgeries/Procedures: Reports: None HEENT Surgical History: Reports: Naso-Sinus Surgery Cardiovascular Surgical History: Reports: None Respiratory Surgical History: Reports: None GI Surgical History: Reports: Hernia, Inguinal Other GI Surgeries/Procedures: bilateral Male Surgical History: Reports: None Endocrine Surgical History: Reports: None Neurological Surgical History: Reports: None Musculoskeletal Surgical History: Reports: Other (See Below) Other Musculoskeletal Surgeries/Procedures:: drainage of septic bursitis right knee Oncologic Surgical History: Reports: None Social & Family History - Family History Family Medical History: No Pertinent Family History - Caffeine Use Caffeine Use: Reports: Soda ED ROS GENERAL - Review of Systems Review Of Systems: Comprehensive ROS is negative, except as noted in HPI. ED EXAM, GENERAL - Physical Exam Exam: See Below (see dictation) ED GENERAL MEDICAL PROCEDURES - Lumbar Puncture Indication: Mental Status Change Consent Obtained: Other (Spouse) Position: Left Prep: CDC/MBT Guidelines, Sterile apes, Betadine Local Anesthesia - Lidocaine (Xylocaine): 1% Plain Local Anesthetic Volume: 3cc Vertebral Interspace: L3/L4 Spinal Needle with Stylet: 22ga, 3.5 Inch (Adult) Number of Attempts: 1 Fluid Appearance: Clear Tubes Obtained: 4 Total Fluid Amount: 4cc Complications: No Sterile Dressing: Adhesive Dressing, 4x4(s) Course - Vital Signs Last Recorded V/S: Last Vital Signs Temp 99.9 F 11/09/21 22:25 Pulse 73 11/10/21 05:37 Resp 16 11/10/21 05:37 BP 126/89 11/10/21 05:37 Pulse Ox 98 11/10/21 05:37 - Orders/Labs/Meds Labs: Laboratory Tests 11/09/21 11/09/21 11/09/21 Range/Units 19:00 19:00 19:00 WBC 13.48 H (4.0-11.0) K/uL RBC 4.87 (4.50-5.90) M/uL Hgb 15.0 (13.0-17.0) g/dL Hct 43.5 (38.0-50.0) % MCV 89.3 (80.0-98.0) fL MCH 30.8 (27.0-32.0) pg MCHC 34.5 (31.0-37.0) g/dL RDW Std Deviation 42.7 (28.0-62.0) fl RDW Coeff of Cathi 13 (11.0-15.0) % Plt Count 270 (150-400) K/uL MPV 11.00 (7.40-12.00) fL Neut % (Auto) 76.9 (48.0-80.0) % Lymph % (Auto) 14.4 L (16.0-40.0) % [place] % (Auto) 8.1 (0.0-15.0) % Eos % (Auto) 0.4 (0.0-7.0) % Baso % (Auto) 0.2 (0.0-1.5) % Neut # (Auto) 10.4 H (1.4-5.7) K/uL Lymph # (Auto) 1.9 (0.6-2.4) K/uL [place] # (Auto) 1.1 H (0.0-0.8) K/uL Eos # (Auto) 0.1 (0.0-0.7) K/uL Baso # (Auto) 0.0 (0.0-0.1) K/uL Nucleated RBC % 0.0 /100WBC Nucleated RBCs # 0 K/uL INR 1.06 Sodium 140 (136-148) mmol/L Potassium 3.4 L (3.5-5.1) mmol/L Chloride 108 H (98-107) mmol/L Carbon Dioxide 14.8 L (21.0-32.0) mmol/L BUN 15 (7.0-18.0) mg/dL Creatinine 1.4 H (0.8-1.3) mg/dL Est Cr Clr Drug Dosing 46.98 mL/min Estimated GFR (MDRD) 53.0 ml/min Glucose 107 H (74-106) mg/dL Calcium 9.1 (8.5-10.1) mg/dL Magnesium 1.6 L (1.8-2.4) mg/dL Total Bilirubin 0.4 (0.2-1.0) mg/dL AST 16 (15-37) IU/L ALT 22 (14-63) IU/L Alkaline Phosphatase 111 (46-116) U/L Total Protein 7.7 (6.4-8.2) g/dL Albumin 4.0 (3.4-5.0) g/dL Globulin 3.7 (2.6-4.0) g/dL Albumin/Globulin Ratio 1.1 (0.9-1.6) TSH, Ultra Sensitive 0.97 (0.36-3.74) uIU/mL Urine Color Urine Appearance Urine pH (5.0-8.0) Ur Specific [place] (1.001-1.035) Urine Protein (NEGATIVE) mg/dL Urine Glucose (UA) (NEGATIVE) mg/dL Urine Ketones (NEGATIVE) mg/dL Urine Occult Blood (NEGATIVE) Urine Nitrite (NEGATIVE) Urine Bilirubin (NEGATIVE) Urine Urobilinogen (<2.0) EU/dL Ur Leukocyte Esterase (NEGATIVE) Urine RBC (0-2/HPF) Urine WBC (0-5/HPF) Ur Epithelial Cells (NONE-FEW) Urine Bacteria (NEGATIVE) CSF Appearance CSF Color CSF WBC (0-5) /uL CSF RBC (0-0) /uL CSF Mononuclear Cells % CSF Polymorphonuclear % CSF Diff Comment CSF Glucose (40-70) mg/dL CSF Lactic Acid (0.0-2.8) mmol/L CSF Total Protein (15-45) mg/dL Salicylates 5.2 (0-20) mg/dL Urine Opiates Screen (NEGATIVE) Ur Oxycodone Screen (NEGATIVE) Urine Methadone Screen (NEGATIVE) Acetaminophen <2.0 ug/mL Ur Barbiturates Screen (NEGATIVE) Ur Phencyclidine Scrn (NEGATIVE) Ur Amphetamine Screen (NEGATIVE) U Methamphetamines Scrn (NEGATIVE) U Benzodiazepines Scrn (NEGATIVE) U Cocaine Metab Screen (NEGATIVE) U Marijuana (THC) Screen (NEGATIVE) Ethyl Alcohol <3 mg/dL 11/09/21 11/09/21 11/09/21 Range/Units 21:55 21:55 22:40 WBC (4.0-11.0) K/uL RBC (4.50-5.90) M/uL Hgb (13.0-17.0) g/dL Hct (38.0-50.0) % MCV (80.0-98.0) fL MCH (27.0-32.0) pg MCHC (31.0-37.0) g/dL RDW Std Deviation (28.0-62.0) fl RDW Coeff of Cathi (11.0-15.0) % Plt Count (150-400) K/uL MPV (7.40-12.00) fL Neut % (Auto) (48.0-80.0) % Lymph % (Auto) (16.0-40.0) % [place] % (Auto) (0.0-15.0) % Eos % (Auto) (0.0-7.0) % Baso % (Auto) (0.0-1.5) % Neut # (Auto) (1.4-5.7) K/uL Lymph # (Auto) (0.6-2.4) K/uL [place] # (Auto) (0.0-0.8) K/uL Eos # (Auto) (0.0-0.7) K/uL Baso # (Auto) (0.0-0.1) K/uL Nucleated RBC % /100WBC Nucleated RBCs # K/uL INR Sodium (136-148) mmol/L Potassium (3.5-5.1) mmol/L Chloride (98-107) mmol/L Carbon Dioxide (21.0-32.0) mmol/L BUN (7.0-18.0) mg/dL Creatinine (0.8-1.3) mg/dL Est Cr Clr Drug Dosing mL/min Estimated GFR (MDRD) ml/min Glucose (74-106) mg/dL Calcium (8.5-10.1) mg/dL Magnesium (1.8-2.4) mg/dL Total Bilirubin (0.2-1.0) mg/dL AST (15-37) IU/L ALT (14-63) IU/L Alkaline Phosphatase (46-116) U/L Total Protein (6.4-8.2) g/dL Albumin (3.4-5.0) g/dL Globulin (2.6-4.0) g/dL Albumin/Globulin Ratio (0.9-1.6) TSH, Ultra Sensitive (0.36-3.74) uIU/mL Urine Color YELLOW Urine Appearance HAZY Urine pH 6.0 (5.0-8.0) Ur Specific [place] >= 1.030 (1.001-1.035) Urine Protein 30 H (NEGATIVE) mg/dL Urine Glucose (UA) NEGATIVE (NEGATIVE) mg/dL Urine Ketones NEGATIVE (NEGATIVE) mg/dL Urine Occult Blood NEGATIVE (NEGATIVE) Urine Nitrite NEGATIVE (NEGATIVE) Urine Bilirubin NEGATIVE (NEGATIVE) Urine Urobilinogen 0.2 (<2.0) EU/dL Ur Leukocyte Esterase NEGATIVE (NEGATIVE) Urine RBC 0-2 (0-2/HPF) Urine WBC 0-2 (0-5/HPF) Ur Epithelial Cells RARE (NONE-FEW) Urine Bacteria FEW (NEGATIVE) CSF Appearance CSF Color CSF WBC (0-5) /uL CSF RBC (0-0) /uL CSF Mononuclear Cells % CSF Polymorphonuclear % CSF Diff Comment CSF Glucose 71.0 H (40-70) mg/dL CSF Lactic Acid (0.0-2.8) mmol/L CSF Total Protein 52 H (15-45) mg/dL Salicylates (0-20) mg/dL Urine Opiates Screen POSITIVE (NEGATIVE) Ur Oxycodone Screen NEGATIVE (NEGATIVE) Urine Methadone Screen NEGATIVE (NEGATIVE) Acetaminophen ug/mL Ur Barbiturates Screen NEGATIVE (NEGATIVE) Ur Phencyclidine Scrn NEGATIVE (NEGATIVE) Ur Amphetamine Screen POSITIVE (NEGATIVE) U Methamphetamines Scrn NEGATIVE (NEGATIVE) U Benzodiazepines Scrn POSITIVE (NEGATIVE) U Cocaine Metab Screen NEGATIVE (NEGATIVE) U Marijuana (THC) Screen NEGATIVE (NEGATIVE) Ethyl Alcohol mg/dL 11/09/21 11/09/21 Range/Units 22:40 22:40 WBC (4.0-11.0) K/uL RBC (4.50-5.90) M/uL Hgb (13.0-17.0) g/dL Hct (38.0-50.0) % MCV (80.0-98.0) fL MCH (27.0-32.0) pg MCHC (31.0-37.0) g/dL RDW Std Deviation (28.0-62.0) fl RDW Coeff of Cathi (11.0-15.0) % Plt Count (150-400) K/uL MPV (7.40-12.00) fL Neut % (Auto) (48.0-80.0) % Lymph % (Auto) (16.0-40.0) % [place] % (Auto) (0.0-15.0) % Eos % (Auto) (0.0-7.0) % Baso % (Auto) (0.0-1.5) % Neut # (Auto) (1.4-5.7) K/uL Lymph # (Auto) (0.6-2.4) K/uL [place] # (Auto) (0.0-0.8) K/uL Eos # (Auto) (0.0-0.7) K/uL Baso # (Auto) (0.0-0.1) K/uL Nucleated RBC % /100WBC Nucleated RBCs # K/uL INR Sodium (136-148) mmol/L Potassium (3.5-5.1) mmol/L Chloride (98-107) mmol/L Carbon Dioxide (21.0-32.0) mmol/L BUN (7.0-18.0) mg/dL Creatinine (0.8-1.3) mg/dL Est Cr Clr Drug Dosing mL/min Estimated GFR (MDRD) ml/min Glucose (74-106) mg/dL Calcium (8.5-10.1) mg/dL Magnesium (1.8-2.4) mg/dL Total Bilirubin (0.2-1.0) mg/dL AST (15-37) IU/L ALT (14-63) IU/L Alkaline Phosphatase (46-116) U/L Total Protein (6.4-8.2) g/dL Albumin (3.4-5.0) g/dL Globulin (2.6-4.0) g/dL Albumin/Globulin Ratio (0.9-1.6) TSH, Ultra Sensitive (0.36-3.74) uIU/mL Urine Color Urine Appearance Urine pH (5.0-8.0) Ur Specific [place] (1.001-1.035) Urine Protein (NEGATIVE) mg/dL Urine Glucose (UA) (NEGATIVE) mg/dL Urine Ketones (NEGATIVE) mg/dL Urine Occult Blood (NEGATIVE) Urine Nitrite (NEGATIVE) Urine Bilirubin (NEGATIVE) Urine Urobilinogen (<2.0) EU/dL Ur Leukocyte Esterase (NEGATIVE) Urine RBC (0-2/HPF) Urine WBC (0-5/HPF) Ur Epithelial Cells (NONE-FEW) Urine Bacteria (NEGATIVE) CSF Appearance CLEAR CSF Color COLORLESS CSF WBC 2 (0-5) /uL CSF RBC 135 H (0-0) /uL CSF Mononuclear Cells 50.0 % CSF Polymorphonuclear 50.0 % CSF Diff Comment CSF Glucose (40-70) mg/dL CSF Lactic Acid 2.4 (0.0-2.8) mmol/L CSF Total Protein (15-45) mg/dL Salicylates (0-20) mg/dL Urine Opiates Screen (NEGATIVE) Ur Oxycodone Screen (NEGATIVE) Urine Methadone Screen (NEGATIVE) Acetaminophen ug/mL Ur Barbiturates Screen (NEGATIVE) Ur Phencyclidine Scrn (NEGATIVE) Ur Amphetamine Screen (NEGATIVE) U Methamphetamines Scrn (NEGATIVE) U Benzodiazepines Scrn (NEGATIVE) U Cocaine Metab Screen (NEGATIVE) U Marijuana (THC) Screen (NEGATIVE) Ethyl Alcohol mg/dL Meds: Medications Discontinued Medications Generic Name Dose Route Start Last Admin Trade Name Freq PRN Reason Stop Dose Admin Diphenhydramine HCl 50 mg 11/09/21 21:49 11/09/21 21:54 Diphenhydramine 50 Mg/Ml Sdv IVPUSH 11/09/21 21:50 50 mg ONETIME ONE Administration Haloperidol Lactate 5 mg 11/09/21 21:48 11/09/21 21:54 Haloperidol Lactate 5 Mg/Ml Sdv IM 11/09/21 21:49 5 mg ONETIME ONE Administration Thiamine HCl 100 mg/ Sodium 101 mls @ 202 mls/hr 11/09/21 18:44 11/09/21 19:17 Chloride IV 11/09/21 18:45 Not Given ONETIME ONE Magnesium Sulfate 4 gm/ Premix 100 mls @ 25 mls/hr 11/09/21 20:45 11/09/21 21:09 IV 11/10/21 00:44 25 mls/hr ONETIME ONE Administration Lorazepam 2 mg 11/09/21 18:43 11/09/21 19:12 Lorazepam 2 Mg/Ml Sdv IVPUSH 11/09/21 18:44 2 mg ONETIME ONE Administration Lorazepam Confirm 11/09/21 21:02 11/09/21 21:18 Lorazepam 2 Mg/Ml Sdv Administered 11/09/21 21:03 Not Given Dose 2 mg .ROUTE .STK-MED ONE Lorazepam 2 mg 11/09/21 21:05 11/09/21 21:08 Lorazepam 2 Mg/Ml Sdv IVPUSH 11/09/21 21:06 2 mg ONETIME ONE Administration Lorazepam 1 mg 11/09/21 21:44 11/09/21 23:19 Lorazepam 2 Mg/Ml Sdv IVPUSH 11/09/21 21:45 Not Given ONETIME ONE Lorazepam 2 mg 11/09/21 21:47 11/09/21 21:54 Lorazepam 2 Mg/Ml Sdv IVPUSH 11/09/21 21:48 2 mg ONETIME ONE Administration Potassium Chloride 40 meq 11/09/21 20:45 11/09/21 21:09 Potassium Chloride 20 Meq Tab.Er PO 11/09/21 20:46 40 meq ONETIME ONE Administration Thiamine HCl 100 mg 11/09/21 19:12 11/09/21 19:16 Thiamine 200 Mg/2 Ml Mdv IVPUSH 11/09/21 19:13 100 mg ONETIME ONE Administration Sepsis Event Note (ED) - Evaluation Sepsis Screening Result: No Definite Risk
[2021-11-09] MEDS ORDERED: LORazepam 2 MG/ML SDV ONE (21:02)
[2021-11-09] MEDS ORDERED: Haloperidol Lactate 5 MG/ML SDV IM ONE (21:48)
[2021-11-09] MEDS ORDERED: diphenhydrAMINE 50 MG/ML SDV IVPUSH ONE (21:49)
[2021-11-10 05:38] VITALS: BP 126/89; PULSE 73
== END 2021-11-10 05:56 | disposition home or self-care (01) ==
LOC: MW.ED 17:41
DX: T40.2X1A Poisoning by other opioids, accidental (unintentional), initial encounter (principal); R41.82 Altered mental status, unspecified
CPT/HCPCS: 36415; 62270; 70450; 71045; 80053; 80143; 80179; 80305; 80307; 81001; 82945; 83605; 83735; 84157; 84443; 85025; 85610; 86592; 86788; 86789; 87070; 87205; 89050; 93005; 96365; 96366; 96372; 96375; 96376; 99285; A9270; J1200; J1630; J2060; J3411; J3475

== ENCOUNTER 2021-11-10 20:23 | Emergency (ER) | payer BC ==
--- NOTE | 2021-11-10 20:58 | PCM.EKG ---
#1 Interpretation EKG Date: 11/10/21 Time: 20:46 Rhythm: NSR Rate (Beats/Min): 57 [place]: Normal P-Wave: Present QRS: Normal ST-T: Normal QT: Normal Comparison: No Change (08/30/21) EKG Interpretation Comments: Sinus Rhythm
[2021-11-10] MEDS ORDERED: Nicotine 21 MG/24 Hr Patch TRDERM ONE (21:30)
[2021-11-10 22:06] LABS: ACETAMINOPHEN 40.5 ug/mL; BLOOD UREA NITROGEN,BUN 18 mg/dL (7.0-18.0); CARBON DIOXIDE,CO2 19.2 mmol/L (21.0-32.0); CHLORIDE,CL 107 mmol/L (98-107); GLUCOSE RANDOM 115 mg/dL (74-106); POTASSIUM,K 3.7 mmol/L (3.5-5.1); SODIUM,NA 142 mmol/L (136-148)
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
[2021-11-11 05:11] VITALS: BP 110/65; PULSE 72
== END 2021-11-11 05:25 ==
LOC: MW.ED 20:23
DX: F23 Brief psychotic disorder (principal); Z79.899 Other long term (current) drug therapy; Z72.0 Tobacco use; Z20.822 Contact with and (suspected) exposure to COVID-19
CPT/HCPCS: 36415; 80053; 80143; 80179; 80305; 80307; 81003; 82140; 82947; 83605; 83735; 84443; 85025; 87635; 99285; A9270; U0002

== ENCOUNTER 2022-01-10 15:21 | Emergency (ER) | payer SELFPAY ==
[2022-01-10] MEDS ORDERED: Cyclobenzaprine 10 MG Tab PO ONE (16:00)
[2022-01-10] MEDS ORDERED: Dexamethasone 10 MG/ML SDV IM ONE (16:00)
[2022-01-10 18:27] VITALS: BP 151/108; PULSE 85
== END 2022-01-10 18:30 | disposition home or self-care (01) ==
LOC: MW.ED 15:21
DX: S12.600A Unspecified displaced fracture of seventh cervical vertebra, initial encounter for closed fracture (principal); S22.31XA Fracture of one rib, right side, initial encounter for closed fracture; Z79.899 Other long term (current) drug therapy; Z72.0 Tobacco use; W10.9XXA Fall (on) (from) unspecified stairs and steps, initial encounter
CPT/HCPCS: 72125; 73030; 96372; 99284; A9270; J1100

== ENCOUNTER 2022-03-06 12:39 | Inpatient (IN) | payer BC ==
[2022-03-06] MEDS ORDERED: Sodium Chloride 0.9% 2.5 ML Syringe FLUSH PRN ×2 (12:52→13:15)
[2022-03-06] MEDS ORDERED: Pantoprazole 80 MG in Sodium Chloride 0.9% 10 ML IVPUSH ONE (12:58)
[2022-03-06] MEDS ORDERED: Sodium Chloride 0.9% 1,000 ML IV ONE ×2 (13:06→15:19)
[2022-03-06] MEDS: Sodium Chloride 0.9% 10 ML Syringe FLUSH PRN ×2 (13:07→21:59)
[2022-03-06] MEDS ORDERED: Sodium Chloride 0.9% 10 ML Syringe FLUSH PRN (13:15)
[2022-03-06 13:32] LABS: CORONAVIRUS COVID-19 NAA NEGATIVE (NEGATIVE); INFLUENZA A NAA NEGATIVE (NEGATIVE); INFLUENZA B NAA NEGATIVE (NEGATIVE)
[2022-03-06] MEDS ORDERED: Sodium Chloride 0.9% 1,000 ML IV STA (14:00)
[2022-03-06 14:51] LABS: BLOOD UREA NITROGEN,BUN 44 mg/dL (7.0-18.0); CARBON DIOXIDE,CO2 16.6 mmol/L (21.0-32.0); CHLORIDE,CL 109 mmol/L (98-107); GLUCOSE RANDOM 106 mg/dL (74-106); POTASSIUM,K 3.6 mmol/L (3.5-5.1); SODIUM,NA 139 mmol/L (136-148)
[2022-03-06] MEDS ORDERED: Piperacillin/Tazobactam 3.375 GM in Sodium Chloride 0.9% 50 ML IV ONE (15:19)
[2022-03-06] MEDS ORDERED: Iopamidol 755 MG/ML 500 ML Multipack Bottle IVPUSH ONE (18:13)
[2022-03-06] MEDS: Piperacillin/Tazobactam 3.375 GM in Sodium Chloride 0.9% 50 ML IV SCH (21:51)
[2022-03-06] MEDS: Sucralfate Suspension 1 GM/10 ML Cup PO SCH (21:52)
[2022-03-06] MEDS: Pantoprazole 40 MG in Sodium Chloride 0.9% 10 ML IVPUSH SCH (21:53)
[2022-03-06] MEDS: Acetaminophen 325 MG Tab PO PRN (22:05)
[2022-03-07] MEDS: traMADol 50 MG Tab PO PRN ×4 (00:36→22:35)
[2022-03-07] MEDS: Sucralfate Suspension 1 GM/10 ML Cup PO SCH ×4 (03:14→20:13)
[2022-03-07] MEDS: Piperacillin/Tazobactam 3.375 GM in Sodium Chloride 0.9% 50 ML IV SCH ×4 (03:15→20:14)
[2022-03-07 04:40] LABS: BLOOD UREA NITROGEN,BUN 22 mg/dL (7.0-18.0); CARBON DIOXIDE,CO2 19.4 mmol/L (21.0-32.0); CHLORIDE,CL 111 mmol/L (98-107); GLUCOSE RANDOM 101 mg/dL (74-106); POTASSIUM,K 3.4 mmol/L (3.5-5.1); SODIUM,NA 139 mmol/L (136-148)
[2022-03-07] MEDS ORDERED: Magnesium Sulfate/Water 2 GM/50 ML Premix Bag IV ONE (08:14)
[2022-03-07] MEDS ORDERED: Sodium Chloride 0.9% with KCl 1,000 ML IV SCH (08:15)
[2022-03-07] MEDS ORDERED: Magnesium Sulfate/Water 2 GM in Premix Bag 1 BAG IV ONE (08:30)
[2022-03-07] MEDS: Pantoprazole 40 MG in Sodium Chloride 0.9% 10 ML IVPUSH SCH ×2 (09:07→20:14)
[2022-03-08] MEDS: Sucralfate Suspension 1 GM/10 ML Cup PO SCH ×4 (03:32→20:21)
[2022-03-08] MEDS: Piperacillin/Tazobactam 3.375 GM in Sodium Chloride 0.9% 50 ML IV SCH ×2 (03:32→09:08)
[2022-03-08 06:03] LABS: BLOOD UREA NITROGEN,BUN 6 mg/dL (7.0-18.0); CHLORIDE,CL 110 mmol/L (98-107); GLUCOSE RANDOM 92 mg/dL (74-106); POTASSIUM,K 3.5 mmol/L (3.5-5.1); SODIUM,NA 140 mmol/L (136-148)
[2022-03-08] MEDS ORDERED: Ondansetron 4 MG/2 ML SDV ONE (07:31)
[2022-03-08] MEDS ORDERED: Midazolam 1 MG/ML 2 ML SDV ONE (07:32)
[2022-03-08] MEDS ORDERED: Glycopyrrolate 0.2 MG/ML SDV ONE (07:32)
[2022-03-08] MEDS ORDERED: fentaNYL 100 MCG/2 ML SDV ONE (07:32)
[2022-03-08] MEDS ORDERED: Propofol 200 MG/20 ML SDV ONE (07:32)
[2022-03-08] MEDS ORDERED: Lidocaine 2% 5 ML SDV ONE (07:32)
[2022-03-08] MEDS ORDERED: Lactated Ringers 1,000 ML IV SCH (08:30)
[2022-03-08] MEDS: traMADol 50 MG Tab PO PRN ×3 (09:09→23:48)
[2022-03-08] MEDS: Pantoprazole 40 MG in Sodium Chloride 0.9% 10 ML IVPUSH SCH ×2 (09:09→20:21)
[2022-03-08] MEDS ORDERED: Sodium Chloride 0.9% 10 ML Syringe FLUSH PRN (09:50)
[2022-03-08] MEDS ORDERED: Sucralfate 1 GM Tab PO SCH (11:30)
[2022-03-08] MEDS: Acetaminophen 325 MG Tab PO PRN (22:58)
[2022-03-09] MEDS: Sucralfate Suspension 1 GM/10 ML Cup PO SCH ×2 (03:25→08:37)
[2022-03-09 06:18] LABS: BLOOD UREA NITROGEN,BUN 8 mg/dL (7.0-18.0); CARBON DIOXIDE,CO2 24.8 mmol/L (21.0-32.0); CHLORIDE,CL 109 mmol/L (98-107); GLUCOSE RANDOM 89 mg/dL (74-106); POTASSIUM,K 3.2 mmol/L (3.5-5.1); SODIUM,NA 141 mmol/L (136-148)
[2022-03-09] MEDS ORDERED: Potassium Chloride 20 MEQ Tab.ER PO ONE (08:00)
[2022-03-09] MEDS: traMADol 50 MG Tab PO PRN (08:35)
[2022-03-09] MEDS: Pantoprazole 40 MG in Sodium Chloride 0.9% 10 ML IVPUSH SCH (08:37)
[2022-03-09 12:08] VITALS: BP 137/63; PULSE 75
== END 2022-03-09 13:43 | disposition home or self-care (01) | DRG 241 ==
LOC: MW.ED 12:39 → MW.MS 16:29
PROVIDERS: ADMIT Internal Medicine; ATTEND Internal Medicine
PROC: 02HV33Z Insertion of Infusion Device into Superior Vena Cava, Percutaneous Approach (ICD-10-PCS; principal; 2022-03-06)
PROC: 30233N1 Transfusion of Nonautologous Red Blood Cells into Peripheral Vein, Percutaneous Approach (ICD-10-PCS; 2022-03-07)
PROC: 0DB78ZX Excision of Stomach, Pylorus, Via Natural or Artificial Opening Endoscopic, Diagnostic (ICD-10-PCS; 2022-03-08)
DX: K25.0 Acute gastric ulcer with hemorrhage (principal); D64.9 Anemia, unspecified; T39.395A Adverse effect of other nonsteroidal anti-inflammatory drugs [NSAID], initial encounter; F10.11 Alcohol abuse, in remission; L40.9 Psoriasis, unspecified; M54.2 Cervicalgia; G43.909 Migraine, unspecified, not intractable, without status migrainosus; F17.200 Nicotine dependence, unspecified, uncomplicated; K29.80 Duodenitis without bleeding; Z20.822 Contact with and (suspected) exposure to COVID-19; G89.29 Other chronic pain; Z79.899 Other long term (current) drug therapy
CPT/HCPCS: 00731; 0240U; 36415; 36430; 71045; 71045-26; 74177; 74177-26; 80048; 80053; 80305-QW; 80307; 81003; 82272; 83605; 83735; 84100; 84484; 85014; 85018; 85025; 85610; 86850; 86900; 86901; 86920; 87040; 93005; 96365; 96375; 99285-25; A9270-GY; C9113; J2250; J2405; J2543; J2704; J3010; J3475; J3480; J3490; J7030; P9016; Q9967

== ENCOUNTER 2022-08-02 09:10 | Day surgery (SDC) | payer BC ==
[~2022-08-02 09:10] MED LIST changes: +Midazolam 1 MG/ML 2 ML SDV ONE; +Propofol 200 MG/20 ML SDV ONE; -ceFAZolin 1 GM in Premix Bag 1 BAG IV SCH; +fentaNYL 100 MCG/2 ML SDV ONE
[2022-08-02] MEDS ORDERED: fentaNYL 100 MCG/2 ML SDV ONE (11:41)
[2022-08-02] MEDS ORDERED: Propofol 200 MG/20 ML SDV ONE (11:47)
[2022-08-02] MEDS ORDERED: Glycopyrrolate 0.2 MG/ML SDV ONE (11:57)
[2022-08-02] MEDS ORDERED: Lactated Ringers 1,000 ML IV SCH (12:15)
[2022-08-02 12:44] VITALS: BP 115/75; PULSE 95
== END 2022-08-02 13:00 | disposition home or self-care (01) ==
LOC: MW.SDS 09:10
PROVIDERS: ATTEND Surgery
DX: K62.1 Rectal polyp (principal); K29.50 Unspecified chronic gastritis without bleeding; K31.89 Other diseases of stomach and duodenum; K25.7 Chronic gastric ulcer without hemorrhage or perforation; K29.80 Duodenitis without bleeding; D64.9 Anemia, unspecified; F17.210 Nicotine dependence, cigarettes, uncomplicated; F41.9 Anxiety disorder, unspecified; F32.A Depression, unspecified; I10 Essential (primary) hypertension; E78.5 Hyperlipidemia, unspecified; G43.909 Migraine, unspecified, not intractable, without status migrainosus; I47.1 Supraventricular tachycardia; G89.4 Chronic pain syndrome; J30.9 Allergic rhinitis, unspecified; Z79.899 Other long term (current) drug therapy; Z98.890 Other specified postprocedural states
CPT/HCPCS: 43239; 45380; J2250; J2704; J3010; J3490; J7120; 00813